=== PATIENT | female | born 1945 | race Two or more races ===

== ENCOUNTER 2016-04-28 13:46 | Inpatient (IN) | payer OTHER, MEDICARE ==
[~2016-04-28] VITALS: Ht 152.4 cm; Wt 59.0 kg
[~2016-04-28 13:46] MED LIST: ATORVASTATIN CA40 MG ORAL; BUSPAR10 MG ORAL; LOSARTAN POTASS50 MG ORAL; MAGNESIUM OXID400 M1 ORAL; MULTIVITAMINS1 EA14 PO; NOVOLOG100 UNIT/3 SUBQ; UNOBMED; VITAMIN C500 M1 ORAL
[2016-04-28 14:40] VITALS: BP 125/59
[2016-04-28 14:51] LABS: BASOPHILS % (AUTO) 0.3 % (0.0-2.0); LYMPHOCYTES % (AUTO) 11.4 % (20.0-45.0); MEAN CORPUSCULAR HEMOGLOBIN 28.6 PG (27.0-31.0); MEAN CORPUSCULAR HGB CONC 32.6 G/DL (32.0-36.0); MEAN CORPUSCULAR VOLUME 88 FL (80-99); MONOCYTES % (AUTO) 9.6 % (1.0-10.0); NEUTROPHILS % (AUTO) 77.6 % (45.0-75.0); PLATELET COUNT 143 K/UL (150-450); RED CELL DISTRIBUTION WIDTH 12.9 % (11.6-14.8); WHITE BLOOD COUNT 13.4 K/UL (4.8-10.8)
[2016-04-28 15:05] LABS: ALANINE AMINOTRANSFERASE 15 U/L (3-33); ALBUMIN/GLOBULIN RATIO 1.4 (1.0-2.7); ANION GAP 18 (5-15); ASPARTATE AMINO TRANSFERASE 20 U/L (5-40); CALCIUM 9.6 mg/dL (8.6-10.2); CARBON DIOXIDE 25 mEQ/L (20-30); CHLORIDE 97 mEQ/L (98-107); CREATININE 0.9 mg/dL (0.5-0.9); HEMOLYSIS 51; POTASSIUM 4.4 mEQ/L (3.4-4.9); SODIUM 140 mEQ/L (135-145); TOTAL PROTEIN 6.9 g/dL (6.6-8.7)
[2016-04-28 15:06] LABS: TROPONIN I < 0.30 ng/mL (<=0.30)
[2016-04-28 15:17] LABS: CKMB < 1.5 ng/mL (< 3.8)
[2016-04-28 15:18] LABS: REFLEX LACTIC ACID YES OR NO YES
[2016-04-28] MEDS ORDERED: IPRATROPIU0.2 MG/1 M HHN (15:28)
[2016-04-28] MEDS ORDERED: RISPERDAL0.5 MG ORAL (15:28)
[2016-04-28] MEDS ORDERED: MIRTAZAPINE15 M3 ORAL (15:28)
[2016-04-28] MEDS ORDERED: ALBUTEROL SULF8.5 GM INH (15:28)
[2016-04-28] MEDS ORDERED: NOVOLIN N100 UNIT/1 SUBQ ×2 (15:30)
[2016-04-28 15:39] VITALS: BP 129/67
[2016-04-28] MEDS ORDERED: RisperiDONE 0.25mg tab ORAL ONE (15:45)
--- NOTE | 2016-04-28 15:55 | Emergency Room Report ---
History of Present Illness General Chief Complaint: Upper Respiratory Illness Source: Medical Record Present Illness HPI 70-year-old female presents to ED for evaluation. Granddaughter is at bedside states the last several days patient has had a productive cough with increased secretions and fever. Notes productive cough. Denies chest pain or shortness of breath. Denies nausea or vomiting. No aggravating relieving factors. Denies any other associated symptoms Allergies: Coded Allergies: LISINOPRIL (Unverified Allergy, Unknown, 12/11/14) VANCOMYCIN (Verified Allergy, Unknown, 01/17/15) Patient History Past Medical History: none, DM, HTN, CVA/TIA Past Surgical History: other - tracheostomy Reviewed Nursing Documentation: PMH: Agreed, PSxH: Agreed Nursing Documentation-PMH Past Medical History: No History, Except For Hx Hypertension: Yes Hx Diabetes: Yes Hx Cerebrovascular Accident: Yes Review of Systems All Other Systems: negative except mentioned in HPI Physical Exam Vital Signs Date Time Temp Pulse Resp B/P Pulse Ox O2 Delivery O2 Flow Rate FiO2 04/28/16 14:00 99.0 99 18 125/59 94 Room Air Sp02 EP Interpretation: reviewed, normal General Appearance: no apparent distress, alert, GCS 15, non-toxic Head: normocephalic Eyes: bilateral eye PERRL, bilateral eye normal inspection ENT: hearing grossly normal, normal pharynx, no angioedema, normal voice Neck: tracheotomy Respiratory: chest non-tender, normal breath sounds, crackles, speaking full sentences Cardiovascular #1: regular rate, rhythm, no edema Gastrointestinal: normal bowel sounds, non tender, soft, non-distended, no guarding, no rebound Rectal: deferred Genitourinary: no CVA tenderness Musculoskeletal: normal inspection Neurologic: alert, oriented x3, responsive, motor strength/tone normal, sensory intact, speech normal Psychiatric: normal inspection Skin: normal inspection Lymphatic: normal inspection Medical Decision Making Diagnostic Impression: Primary Impression: Pneumonia Qualified Codes: J18.9 - Pneumonia, unspecified organism Additional Impressions: Sepsis Qualified Codes: A41.9 - Sepsis, unspecified organism UTI (urinary tract infection) Qualified Codes: N39.0 - Urinary tract infection, site not specified ER Course Hospital Course 70-year-old F presenting to ED with increased secretions, cough, fever Differential diagnoses include: Pneumonia, CHF exacerbation, pneumothorax, fluid overload Clinical course Patient placed on stretcher. On surveillance monitor. After initial history and physical, I ordered labs, IV fluids, EKG, chest x-ray, blood cultures, UA. Labs -leukocytosis noted, hemoglobin/hematocrit stable, electrolytes ok, lactate 2.3, troponins negative, UA grossly positive CXR - R lower lobe infiltrate given 30cc/kg fluid bolus. abx given. Case discussed with Dr. Roberts and he agreed to the patient to his service for further care and support I feel this is a highly complex case requiring extensive working including EKG/ Rhythm strip, Xray/CT/US, Blood/urine lab work, repeat exams while in ED, and administration of strong opiates/narcotics for pain control, admission to hospital or close patient follow up. Diagnosis - pneumonia, sepsis, UTI Patient admitted to floor in serious condition Labs Test 04/28/16 14:15 04/28/16 15:34 04/28/16 15:45 White Blood Count 13.4 K/UL (4.8-10.8) Red Blood Count 4.90 M/UL (4.20-5.40) Hemoglobin 14.0 G/DL (12.0-16.0) Hematocrit 43.0 % (37.0-47.0) Mean Corpuscular Volume 88 FL (80-99) Mean Corpuscular Hemoglobin 28.6 PG (27.0-31.0) Mean Corpuscular Hemoglobin Concent 32.6 G/DL (32.0-36.0) Red Cell Distribution Width 12.9 % (11.6-14.8) Platelet Count 143 K/UL (150-450) Mean Platelet Volume 11.0 FL (6.5-10.1) Neutrophils (%) (Auto) 77.6 % (45.0-75.0) Lymphocytes (%) (Auto) 11.4 % (20.0-45.0) Monocytes (%) (Auto) 9.6 % (1.0-10.0) Eosinophils (%) (Auto) 1.0 % (0.0-3.0) Basophils (%) (Auto) 0.3 % (0.0-2.0) Sodium Level 140 mEQ/L (135-145) Potassium Level 4.4 mEQ/L (3.4-4.9) Chloride Level 97 mEQ/L (98-107) Carbon Dioxide Level 25 mEQ/L (20-30) Anion Gap 18 (5-15) Blood Urea Nitrogen 21 mg/dL (7-23) Creatinine 0.9 mg/dL (0.5-0.9) Estimat Glomerular Filtration Rate mL/min (>60) Glucose Level 278 mg/dL (74-106) Lactic Acid Level 2.30 mmol/L (0.66-2.22) Calcium Level 9.6 mg/dL (8.6-10.2) Total Bilirubin 0.2 mg/dL (0.0-1.2) Aspartate Amino Transf (AST/SGOT) 20 U/L (5-40) Alanine Aminotransferase (ALT/SGPT) 15 U/L (3-33) Alkaline Phosphatase 87 U/L (35-104) Total Creatine Kinase 89 U/L (26-140) Creatine Kinase MB < 1.5 ng/mL (< 3.8) Creatine Kinase MB Relative Index 1.6 Troponin I < 0.30 ng/mL (<=0.30) Pro-B-Type Natriuretic Peptide 23 pg/mL (0-125) Total Protein 6.9 g/dL (6.6-8.7) Albumin 4.1 g/dL (3.5-5.2) Globulin 2.8 g/dL Albumin/Globulin Ratio 1.4 (1.0-2.7) EKG Diagnostic Results Rate: normal Rhythm: NSR ST Segments: no acute changes ASA given to the pt in ED: No Rhythm Strip Diag. Results EP Interpretation: yes Rhythm: NSR, no PVC's, no ectopy Chest X-Ray Diagnostic Results EP Interpretation: Yes Findings: no pneumothorax, no acute cardiopulmonary disease, other - atelectasis/consolidation in RLL Number of Views: 1 Last Vital Signs Date Time Temp Pulse Resp B/P Pulse Ox O2 Delivery O2 Flow Rate FiO2 04/28/16 14:40 99.0 98 18 125/59 94 Room Air Status: improved Disposition: ADMITTED INPATIENT Condition: Serious Referrals: [facility],REFERRING (PCP) MELISSA CALDWELL M.D. Apr 28, 2016 15:55
[2016-04-28 16:02] LABS: APPEARANCE,URINE CLOUDY; KETONES,URINE NEGATIVE (NEGATIVE); LEUKOCYTE ESTERASE ,URINE 3+ (NEGATIVE); NITRITE,URINE NEGATIVE (NEGATIVE); PH,URINE 6 (4.5-8.0); PROTEIN,URINE 3+ (NEGATIVE); UROBILINOGEN,URINE NORMAL MG/DL (0.0-1.0)
[2016-04-28 16:20] LABS: BACTERIA,URINE FEW /HPF; RBC,URINE TNTC /HPF (0 - 2); SQUAMOUS EPITHELIAL CELL,UR OCCASIONAL /LPF (NONE/OCC); WBC,URINE TNTC /HPF (0 - 2)
[2016-04-28] MEDS ORDERED: Hydrogen Peroxide 120ml Bottle TOPIC ONE (16:51)
[2016-04-28 16:56] VITALS: BP 118/52
[2016-04-28 18:06] VITALS: BP 119/70
[2016-04-28 19:00] VITALS: BP 159/58
[2016-04-28] MEDS ORDERED: Ipratropium 0.02% Inh Soln 2.5ml UD HHN PRN (21:00)
[2016-04-28] MEDS ORDERED: Albuterol ud Inhalation HHN PRN (21:00)
[2016-04-28] MEDS: Heparin 5000 units/ml inj SUBQ SCH (21:00)
[2016-04-28] MEDS ORDERED: Milk of Magnesia 30ml Ud ORAL PRN (21:00)
[2016-04-28] MEDS ORDERED: Zolpidem 5mg tab ORAL PRN (21:00)
[2016-04-28] MEDS ORDERED: Albuterol ud Inhalation HHN SCH (22:00)
[2016-04-28] MEDS: cefTRIAXone 1 GM in D5W 55 ML IVPB SCH (22:08)
[2016-04-28] MEDS: DuoNeb 0.5-3(2.5)mg/3ml neb HHN SCH (22:16)
[2016-04-28] MEDS: NovoLOG Insulin Flexpen SUBQ SCH (22:19)
[2016-04-28] MEDS: Insulin NPH SUBQ SCH (22:46)
[2016-04-28] MEDS: Azithromycin 500 MG in D5W 275 ML IV SCH (22:48)
[2016-04-29] VITALS: BP 140/78
[2016-04-29 04:00] VITALS: BP 118/57
[2016-04-29] MEDS: NovoLOG Insulin Flexpen SUBQ SCH ×4 (06:29→21:10)
[2016-04-29 07:20] LABS: BASOPHILS % (AUTO) 0.4 % (0.0-2.0); EOSINOPHILS % (AUTO) 1.9 % (0.0-3.0); LYMPHOCYTES % (AUTO) 25.9 % (20.0-45.0); MEAN CORPUSCULAR HEMOGLOBIN 28.9 PG (27.0-31.0); MEAN CORPUSCULAR HGB CONC 33.3 G/DL (32.0-36.0); MEAN CORPUSCULAR VOLUME 87 FL (80-99); MEAN PLATELET VOLUME 10.3 FL (6.5-10.1); MONOCYTES % (AUTO) 11.1 % (1.0-10.0); NEUTROPHILS % (AUTO) 60.8 % (45.0-75.0); PLATELET COUNT 133 K/UL (150-450); RED BLOOD COUNT 4.39 M/UL (4.20-5.40); WHITE BLOOD COUNT 9.6 K/UL (4.8-10.8)
[2016-04-29 07:21] LABS: ANION GAP 14 (5-15); CALCIUM 9.1 mg/dL (8.6-10.2); CARBON DIOXIDE 25 mEQ/L (20-30); CHLORIDE 104 mEQ/L (98-107); CREATININE 0.7 mg/dL (0.5-0.9); HEMOLYSIS 0; POTASSIUM 4.1 mEQ/L (3.4-4.9); SODIUM 143 mEQ/L (135-145)
[2016-04-29 08:07] VITALS: BP 101/53
--- NOTE | 2016-04-29 08:29 | Diagnostic Imaging Report ---
Indication: Dyspnea Comparison: 12/03/14 A single view chest radiograph was obtained. Findings: No definite infiltrate or pulmonary vascular congestion identified. Ventriculoperitoneal shunt and tracheostomy noted. There is no pneumothorax. The heart is enlarged. The aorta is mildly enlarged consistent with atherosclerotic vascular disease. The bones are osteopenic. Impression: Interval tracheostomy placement. No change otherwise.
[2016-04-29] MEDS: Heparin 5000 units/ml inj SUBQ SCH ×2 (09:00→20:23)
[2016-04-29] MEDS: Losartan 50mg tab ORAL SCH (09:00)
[2016-04-29] MEDS ORDERED: Albuterol 90mcg Inhaler 8gm INH SCH (10:00)
[2016-04-29] MEDS: Magnesium Oxide 400mg tab ORAL SCH ×2 (10:33→21:06)
[2016-04-29] MEDS: Ascorbic Acid 500mg tab ORAL SCH (10:34)
[2016-04-29] MEDS: DuoNeb 0.5-3(2.5)mg/3ml neb HHN SCH ×2 (10:47→22:23)
[2016-04-29] MEDS: Insulin NPH SUBQ SCH ×2 (11:06→21:58)
[2016-04-29 11:53] VITALS: BP 121/58
[2016-04-29 16:41] VITALS: BP 121/59
[2016-04-29 20:00] VITALS: BP 104/53
[2016-04-29] MEDS: cefTRIAXone 1 GM in D5W 55 ML IVPB SCH (21:58)
--- NOTE | 2016-04-29 21:58 | History and Physical Report ---
DATE OF ADMISSION: 04/28/2016 REASON FOR ADMISSION: Possible upper respiratory tract infection, possible pneumonia, now with evidence of bacteremia. HISTORY OF PRESENT ILLNESS: The patient is a 70-year-old female presented to the emergency room. The patient's granddaughter apparently noted that she has had productive cough with increased secretions and fever. The patient denies any chest pain or shortness of breath. Denies nausea or vomiting. Denies any associated symptoms. The patient was seen and evaluated in the emergency room. She did have chest x-ray consistent with pneumonia and the patient was given IV antibiotics and admitted to the floor for ongoing care. The blood cultures are growing gram-positive cocci in clusters. The patient however appears to be clinically comfortable at present. PAST MEDICAL HISTORY: Diabetes, hypertension, history of CVA, and prior history tracheostomy. The patient also with history of diabetes and history of stroke. MEDICATIONS: Reviewed. ALLERGIES: Reviewed. REVIEW OF SYSTEMS: Otherwise negative. Negative with the exception of the above. PHYSICAL EXAMINATION: GENERAL: The patient is a well-developed female, comfortable at present. VITAL SIGNS: Blood pressure is 101/53 and pulse 66. The patient has a G-tube. Respiratory rate 15 and saturations are 99%. HEENT: Fairly negative. NECK: Supple. Extraocular grossly intact. Tracheostomy, which is midline. Carotids are 2+. LUNGS: Coarse breath sounds. Moderate air entry. CARDIAC: S1 and S2. Regular rate and rhythm without murmurs, rubs, or gallops. ABDOMEN: Overall soft, nontender, and nondistended. EXTREMITIES: No cyanosis or clubbing. No significant edema. NEUROLOGIC: The patient appears to be fairly alert and oriented. Grossly weak. LABORATORY AND DIAGNOSTIC DATA: Electrolytes fairly normal at present. Previously with a blood sugar of 278, now 150 . Lactic acid level 3.30. White count initially 13.4, now improved to 9.6 and platelets of 143,000, but this morning 133,000. Urinalysis with too numerous to count white cells. IMPRESSION: 1. Urinary tract infection possible urosepsis. 2. Evidence of tracheostomy. 3. evidence of pneumonia. 4. Evidence of positive blood culture. 5. Possible sepsis with associated leukocytosis. 6. Hyperglycemia. 7. Evidence of hematuria . RECOMMENDATIONS: Admission noted. The patient will be placed on vancomycin as well as Tygacil. I will call Infectious Disease to assist. IV hydration. DVT prophylaxis. Monitor urinary output. Follow up final blood cultures. Respiratory care as needed and tracheostomy care. Continue with other home medications and monitor clinically with changes. Interventions discuss with family. Nebulized therapy as needed. Oxygen therapy. Suction and continue to follow closely for further changes and ongoing interventions. Lenin Roberts M.D. DR: Kendall JOB#: [id number] CC: GISELLE
--- NOTE | 2016-04-29 22:17 | Consultation ---
DATE OF CONSULTATION: 04/29/2016 INFECTIOUS DISEASES CONSULTATION CONSULTING PHYSICIAN: Tara Duenas M.D. REFERRING PHYSICIAN: Lenin Roberts M.D. REASON FOR CONSULTATION: Possible pneumonia. HISTORY OF PRESENTING ILLNESS: This is a 70-year-old lady with history of diabetes, hypertension, CVA, and respiratory failure, status post tracheostomy on a T-tube, who came in with fever, cough, and increased secretions. She was seen in [place] [facility] where she was found to have a pneumonia and urinary tract infection and an Infectious Diseases consultation has been obtained for antibiotics. PAST MEDICAL HISTORY: 1. History of diabetes. 2. Hypertension. 3. CVA. 4. Respiratory failure, status post tracheostomy on a T-tube. MEDICATIONS: As an inpatient, the patient is on Lipitor, albuterol, ascorbic acid, losartan, magnesium oxide, multivitamin, insulin, Protonix, Remeron, insulin, azithromycin, ceftriaxone, albuterol, Mylanta, Risperdal, subcutaneous heparin, Tylenol, Ambien, and milk of magnesia. ALLERGIES: 1. Vancomycin. 2. Lisinopril. SOCIAL HISTORY: She does not smoke, drink, or use drugs. FAMILY HISTORY: Noncontributory. REVIEW OF SYSTEMS: Unable to obtain currently. PHYSICAL EXAMINATION: VITAL SIGNS: Temperature of 98.6 degrees, T-max of 99 degrees, pulse of 88, respiratory rate of 16, blood pressure 101/53, and O2 saturation of 98%. HEENT: Pupils are equally reactive to light and accommodation. Mouth appears clean without thrush. NECK: Tracheostomy site appears clean. CARDIOVASCULAR: Regular rate and rhythm. No murmurs. LUNGS: Clear to auscultation bilaterally. No crackles. No wheezes. ABDOMEN: Soft and nontender. No organomegaly. EXTREMITIES: No cyanosis, no clubbing, and no edema. LABORATORY DATA: White count of 13.4 yesterday and white count of 9.6 today. Hemoglobin 12.7, hematocrit 38, MCV 87, and platelet count of 133,000, with neutrophils of 60%. Sodium 143, potassium 4.1, chloride 104, bicarb 25, BUN 12, creatinine 0.7, glucose 150, and calcium 9.1. On 04/28/2016, total bilirubin 0.2. AST 20, ALT 15, and alkaline phosphatase 87. CK of 89 and CK-MB less than 1.5. Troponin less than 0.3. Total protein 6.9. Albumin 4.1. UA showing efl-hfebbuzi-ir-count white cells and lupus erythematosus 3+. Nitrites negative. Blood culture is growing gram-positive cocci in clusters. Nasal swab was negative for influenza A and B. Chest x-ray is showing no definite infiltrate or congestion. ASSESSMENT: 1. This is a 70-year-old lady with history of diabetes, hypertension, and cerebrovascular accident, who comes in with urinary tract infection. 2. She also has positive blood cultures with gram-positive cocci. 3. We would also be concerned regarding a pneumonia. PLAN: 1. Continue ceftriaxone and azithromycin. 2. We will start the patient on linezolid given her vancomycin allergy. 3. We will order sputum for Gram stain and culture. 4. We will order urine cultures. 5. We will order for serum Legionella antibody and mycoplasma serology. 6. We will follow up cultures and adjust antibiotics accordingly. I would like to thank, Dr. Roberts, for this consultation. Tara Duenas M.D. DR: ANTOINE JOB#: [id number] CC: Lenin Roberts M.D.
[2016-04-29] MEDS ORDERED: ALBUTEROL2.5 MG/3 M INH (22:25)
[2016-04-29] MEDS: Azithromycin 500 MG in D5W 275 ML IV SCH (22:45)
[2016-04-30] VITALS: BP 128/54
[2016-04-30 04:00] VITALS: BP 106/53
[2016-04-30] MEDS: NovoLOG Insulin Flexpen SUBQ SCH ×4 (06:24→20:50)
[2016-04-30] MEDS: DuoNeb 0.5-3(2.5)mg/3ml neb HHN SCH ×2 (07:15→21:08)
[2016-04-30 08:00] VITALS: BP 104/60
--- NOTE | 2016-04-30 08:52 | General Progress Note ---
Assessment/Plan Assessment/Plan IMPRESSION: 1. Urinary tract infection possible urosepsis. 2. Evidence of tracheostomy. 3. Evidence of pneumonia. 4. Evidence of positive blood culture. ?contaminant 5. Possible sepsis with associated leukocytosis. 6. Hyperglycemia. 7. Evidence of hematuria PLAN ID noted. urology contacted for hematuria IV antibiotics care noted and will monitor continue same trach care suction follow up for change and recommend further impression, plan, and exam edited and reviewed in detail care discussed with RN Subjective Allergies: Coded Allergies: LISINOPRIL (Unverified Allergy, Unknown, 12/11/14) VANCOMYCIN (Verified Allergy, Unknown, 01/17/15) Subjective care noted ID appreciated events reviewed overnight Objective Last 24 Hour Vital Signs Date Time Temp Pulse Resp B/P Pulse Ox O2 Delivery O2 Flow Rate FiO2 04/30/16 08:00 97.7 74 15 104/60 95 04/30/16 07:20 73 16 98 T-piece 5.0 04/30/16 07:18 T-piece 5.0 04/30/16 07:11 69 16 96 T-piece 5.0 04/30/16 07:11 28 04/30/16 07:09 96 T-piece 5.0 04/30/16 04:00 96.8 63 20 106/53 96 Trach Collar 5.0 04/30/16 00:00 96.3 81 22 128/54 96 Trach Collar 5.0 04/29/16 22:34 82 16 98 T-piece 5.0 04/29/16 22:21 28 04/29/16 22:21 75 16 95 T-piece 5.0 04/29/16 20:05 97 T-piece 5.0 04/29/16 20:05 97 16 T-piece 5.0 04/29/16 20:05 T-piece 5.0 28 04/29/16 20:00 97.3 77 17 104/53 93 Room Air 04/29/16 16:41 98.2 81 15 121/59 99 Room Air 04/29/16 11:53 97.8 75 16 121/58 97 Room Air 04/29/16 10:58 88 16 98 T-piece 5.0 28 04/29/16 10:58 28 04/29/16 10:47 95 T-piece 5.0 28 04/29/16 10:47 82 16 T-piece 5.0 28 04/29/16 10:47 T-piece 5.0 28 04/29/16 10:47 82 16 95 T-piece 5.0 04/29/16 10:47 04/29/16 09:00 101/53 Intake and Output 04/29/16 04/30/16 19:00 07:00 Intake Total 850 ml 630 ml Balance 850 ml 630 ml Intake Oral 550 ml IV Total 300 ml 630 ml # Voids 1 5 Labs Test 04/28/16 14:15 04/28/16 15:34 04/28/16 15:45 04/29/16 06:10 White Blood Count 13.4 K/UL (4.8-10.8) 9.6 K/UL (4.8-10.8) Red Blood Count 4.90 M/UL (4.20-5.40) 4.39 M/UL (4.20-5.40) Hemoglobin 14.0 G/DL (12.0-16.0) 12.7 G/DL (12.0-16.0) Hematocrit 43.0 % (37.0-47.0) 38.0 % (37.0-47.0) Mean Corpuscular Volume 88 FL (80-99) 87 FL (80-99) Mean Corpuscular Hemoglobin 28.6 PG (27.0-31.0) 28.9 PG (27.0-31.0) Mean Corpuscular Hemoglobin Concent 32.6 G/DL (32.0-36.0) 33.3 G/DL (32.0-36.0) Red Cell Distribution Width 12.9 % (11.6-14.8) 13.0 % (11.6-14.8) Platelet Count 143 K/UL (150-450) 133 K/UL (150-450) Mean Platelet Volume 11.0 FL (6.5-10.1) 10.3 FL (6.5-10.1) Neutrophils (%) (Auto) 77.6 % (45.0-75.0) 60.8 % (45.0-75.0) Lymphocytes (%) (Auto) 11.4 % (20.0-45.0) 25.9 % (20.0-45.0) Monocytes (%) (Auto) 9.6 % (1.0-10.0) 11.1 % (1.0-10.0) Eosinophils (%) (Auto) 1.0 % (0.0-3.0) 1.9 % (0.0-3.0) Basophils (%) (Auto) 0.3 % (0.0-2.0) 0.4 % (0.0-2.0) Sodium Level 140 mEQ/L (135-145) 143 mEQ/L (135-145) Potassium Level 4.4 mEQ/L (3.4-4.9) 4.1 mEQ/L (3.4-4.9) Chloride Level 97 mEQ/L (98-107) 104 mEQ/L (98-107) Carbon Dioxide Level 25 mEQ/L (20-30) 25 mEQ/L (20-30) Anion Gap 18 (5-15) 14 (5-15) Blood Urea Nitrogen 21 mg/dL (7-23) 12 mg/dL (7-23) Creatinine 0.9 mg/dL (0.5-0.9) 0.7 mg/dL (0.5-0.9) Estimat Glomerular Filtration Rate mL/min (>60) mL/min (>60) Glucose Level 278 mg/dL (74-106) 150 mg/dL (74-106) Lactic Acid Level 2.30 mmol/L (0.66-2.22) 2.70 mmol/L (0.66-2.22) Calcium Level 9.6 mg/dL (8.6-10.2) 9.1 mg/dL (8.6-10.2) Total Bilirubin 0.2 mg/dL (0.0-1.2) Aspartate Amino Transf (AST/SGOT) 20 U/L (5-40) Alanine Aminotransferase (ALT/SGPT) 15 U/L (3-33) Alkaline Phosphatase 87 U/L (35-104) Total Creatine Kinase 89 U/L (26-140) Creatine Kinase MB < 1.5 ng/mL (< 3.8) Creatine Kinase MB Relative Index 1.6 Troponin I < 0.30 ng/mL (<=0.30) Pro-B-Type Natriuretic Peptide 23 pg/mL (0-125) Total Protein 6.9 g/dL (6.6-8.7) Albumin 4.1 g/dL (3.5-5.2) Globulin 2.8 g/dL Albumin/Globulin Ratio 1.4 (1.0-2.7) Urine Color Pale yellow Urine Appearance Cloudy Urine pH 6 (4.5-8.0) Urine Specific [place] 1.015 (1.005-1.035) Urine Protein 3+ (NEGATIVE) Urine Glucose (UA) 2+ (NEGATIVE) Urine Ketones Negative (NEGATIVE) Urine Occult Blood 5+ (NEGATIVE) Urine Nitrite Negative (NEGATIVE) Urine Bilirubin Negative (NEGATIVE) Urine Urobilinogen Normal MG/DL (0.0-1.0) Urine Leukocyte Esterase 3+ (NEGATIVE) Urine RBC Tntc /HPF (0 - 2) Urine WBC Tntc /HPF (0 - 2) Urine Squamous Epithelial Cells Occasional /LPF Urine Bacteria Few /HPF (NONE) Height (Feet): 5 Height (Inches): 0.00 Weight (Pounds): 130 Objective PHYSICAL EXAMINATION: GENERAL: The patient is a well-developed female, comfortable at present. HEENT: Fairly negative. NECK: Supple. Extraocular grossly intact. Tracheostomy, which is midline. Carotids are 2+. LUNGS: Coarse breath sounds. Moderate air entry. CARDIAC: S1 and S2. Regular rate and rhythm without murmurs, rubs, or gallops. ABDOMEN: Overall soft, nontender, and nondistended. EXTREMITIES: No cyanosis or clubbing. No significant edema. NEUROLOGIC: The patient appears to be nonfocal but weak TAMIE WANG Apr 30, 2016 08:52
[2016-04-30] MEDS: Losartan 50mg tab ORAL SCH (09:00)
[2016-04-30] MEDS: Heparin 5000 units/ml inj SUBQ SCH ×2 (09:00→20:16)
[2016-04-30] MEDS: Magnesium Oxide 400mg tab ORAL SCH ×2 (09:35→20:48)
[2016-04-30] MEDS: Ascorbic Acid 500mg tab ORAL SCH (09:35)
[2016-04-30] MEDS: Insulin NPH SUBQ SCH ×3 (09:36→23:36)
--- NOTE | 2016-04-30 10:07 | Infectious Diseases Prog Note ---
Assessment/Plan Assessment/Plan A: Pyuria, UTI Pneumonia DM HPN s/p CVA Tracheostomy status Positive blood culture, contamination Acodosis P: continue Rocephin & Zithromax Discontinue Linezolid Subjective ROS Limited/Unobtainable: Yes Allergies: Coded Allergies: LISINOPRIL (Unverified Allergy, Unknown, 12/11/14) VANCOMYCIN (Verified Allergy, Unknown, 01/17/15) Objective Vital Signs Last 24 Hour Vital Signs Date Time Temp Pulse Resp B/P Pulse Ox O2 Delivery O2 Flow Rate FiO2 04/30/16 08:00 97.7 74 15 104/60 95 04/30/16 07:20 73 16 98 T-piece 5.0 28 04/30/16 07:18 T-piece 5.0 28 04/30/16 07:11 69 16 96 T-piece 5.0 28 04/30/16 07:11 28 04/30/16 07:09 96 T-piece 5.0 28 04/30/16 04:00 96.8 63 20 106/53 96 Trach Collar 5.0 04/30/16 00:00 96.3 81 22 128/54 96 Trach Collar 5.0 04/29/16 22:34 82 16 98 T-piece 5.0 04/29/16 22:21 28 04/29/16 22:21 75 16 95 T-piece 5.0 04/29/16 20:05 97 T-piece 5.0 04/29/16 20:05 97 16 T-piece 5.0 04/29/16 20:05 T-piece 5.0 04/29/16 20:00 97.3 77 17 104/53 93 Room Air 04/29/16 16:41 98.2 81 15 121/59 99 Room Air 04/29/16 11:53 97.8 75 16 121/58 97 Room Air 04/29/16 10:58 88 16 98 T-piece 5.0 04/29/16 10:58 28 04/29/16 10:47 95 T-piece 5.0 04/29/16 10:47 82 16 T-piece 5.0 28 04/29/16 10:47 T-piece 5.0 28 04/29/16 10:47 82 16 95 T-piece 5.0 28 04/29/16 10:47 28 Height (Feet): 5 Height (Inches): 0.00 Weight (Pounds): 130 General Appearance: no acute distress HEENT: status post trach Respiratory/Chest: lungs clear Cardiovascular: normal rate Abdomen: soft, non tender Extremities: no edema Neurologic/Psychiatric: other - sleeping, left hemiplegia Microbiology Date/Time Source Procedure Growth Status 04/28/16 14:27 Blood Blood Culture - Preliminary Staphylococcus Sp Coag Neg Resulted 04/28/16 14:12 Blood Blood Culture - Preliminary NO GROWTH AFTER 24 HOURS Resulted 04/28/16 14:15 Nasal Nares Influenza Types A,B Antigen (RANDALL) - Final Complete 04/28/16 15:34 Urine,Clean Catch Urine Culture - Preliminary NO GROWTH AFTER 24 HOURS Resulted Current Medications Medications (Trade) Dose Ordered Sig/Kerry Route PRN Reason Start Time Stop Time Status Last Admin Dose Admin Acetaminophen (Tylenol) 650 mg Q4H PRN ORAL Mild Pain/Temp > 100.5 04/28/16 21:00 05/28/16 20:59 Al Hydroxide/Mg Hydroxide (Mylanta) 30 ml Q6H PRN ORAL Abdominal cramps 04/28/16 21:30 05/28/16 21:29 Albuterol Sulfate (Proventil) 2.5 mg Q4H PRN HHN Shortness of Breath 04/28/16 21:00 05/03/16 20:59 Albuterol/ Ipratropium (DuoNeb 0.5-3(2.5)mg/3ml) 3 ml Q12HRT HHN 04/28/16 22:00 05/03/16 21:59 04/30/16 07:15 Ascorbic Acid (Vitamin C) 500 mg DAILY ORAL 04/29/16 09:00 05/29/16 08:59 04/30/16 09:35 Atorvastatin Calcium (Lipitor) 40 mg BEDTIME ORAL 04/29/16 21:00 05/29/16 20:59 04/29/16 21:06 Azithromycin/ Dextrose (Zithromax/D5W 250ml) 275 ml @ 275 mls/hr Q24H IV 04/28/16 23:00 05/04/16 23:59 04/29/16 22:45 Ceftriaxone Sodium 1 gm/ Dextrose 55 ml @ 110 mls/hr Q24H IVPB 04/28/16 22:00 05/05/16 21:59 04/29/16 21:58 Dextrose (Dextrose 50%) STAT PRN IV Hypoglycemia 04/28/16 21:00 05/28/16 20:59 Heparin Sodium (Porcine) (Heparin 5000 units/ml) 5,000 units EVERY 12 HOURS SUBQ 04/28/16 21:00 05/28/16 20:59 Insulin Aspart (NovoLOG) BEFORE MEALS AND HS SUBQ 04/28/16 22:00 05/28/16 21:59 04/30/16 06:24 Insulin Human NPH (NovoLIN N) 14 units BEDTIME SUBQ 04/28/16 23:00 05/28/16 22:59 04/29/16 21:58 Insulin Human NPH (NovoLIN N) 20 units DAILY SUBQ 04/29/16 09:00 05/29/16 08:59 04/30/16 09:36 Linezolid (Zyvox) 300 ml @ 300 mls/hr Q12HR IVPB 04/29/16 13:00 05/06/16 12:59 04/30/16 09:36 Losartan Potassium (Cozaar) 50 mg DAILY ORAL 04/29/16 09:00 05/29/16 08:59 Magnesium Hydroxide 30 ml 30 ml HSPRN PRN ORAL Constipation 04/28/16 21:00 05/28/16 20:59 Magnesium Oxide (Mag-Ox 400mg) 400 mg Q12HR ORAL 04/29/16 09:00 05/29/16 08:59 04/30/16 09:35 Mirtazapine 15 mg 15 mg DAILY ORAL 04/29/16 09:00 05/29/16 08:59 04/30/16 09:35 Multivitamins (Multivitamins) 1 tab DAILY ORAL 04/29/16 09:00 05/29/16 08:59 04/30/16 09:35 Pantoprazole (Protonix) 40 mg DAILY ORAL 04/29/16 09:00 05/29/16 08:59 04/30/16 09:34 Risperidone (RisperDAL) 0.5 mg DAILY PRN ORAL Agitation 04/28/16 21:00 05/28/16 20:59 Zolpidem Tartrate (Ambien) 5 mg HSPRN PRN ORAL Insomnia 04/28/16 21:00 05/28/16 20:59 ANTONIO GRACIA Apr 30, 2016 10:07
[2016-04-30 11:56] VITALS: BP 114/63
[2016-04-30 16:44] VITALS: BP 140/69
--- NOTE | 2016-04-30 19:46 | Cardiology Report ---
APPROVED REPORT EKG Measurement Heart [id number] Normal sinus rhythm Normal ECG
[2016-04-30 20:00] VITALS: BP 138/68
[2016-04-30] MEDS: cefTRIAXone 1 GM in D5W 55 ML IVPB SCH (21:26)
[2016-04-30] MEDS: Azithromycin 500 MG in D5W 275 ML IV SCH (22:43)
[2016-05-01] VITALS: BP 118/49
--- NOTE | 2016-05-01 01:27 | Consultation ---
DATE OF CONSULTATION: 04/30/2016 CONSULTING PHYSICIAN: Solis Doss M.D. REFERRING PHYSICIAN: Lenin Roberts M.D. REASON FOR CONSULTATION: For evaluation of hematuria. HISTORY OF PRESENT ILLNESS: This is a 70-year-old female, she was admitted to the hospital because of possible upper respiratory tract infection and pneumonia. She has a history of urinary incontinence. She has a history of chronic trach. She was noted to have likely hematuria. Urology evaluation requested. I am not sure, she has had any flank pain. Most of the history was obtained from the chart and her family. PAST MEDICAL HISTORY: Significant for diabetes, hypertension, and history of CVA. PAST SURGICAL HISTORY: She had a tracheostomy. She has removal of polyps from her uterus and also tubal ligation. CURRENT MEDICATIONS: In the hospital, the patient is on, 1. Lipitor. 2. Vitamin C. 3. Cozaar. 4. Mag-Ox. 5. Multivitamin. 6. Novolin. 7. Protonix. 8. Remeron. 9. Ceftriaxone. 10. Mylanta. 11. Risperdal. 12. Proventil. 13. Subcutaneous heparin. 14. Ambien. ALLERGIES: 1. Lisinopril. 2. Vancomycin. SOCIAL HISTORY: She is a nonsmoker. REVIEW OF SYSTEMS: Unable to obtain. FAMILY HISTORY: Unable to obtain. PHYSICAL EXAMINATION: GENERAL: This is an elderly female. She is nonverbal. VITAL SIGNS: Temperature is 97.7, blood pressure is 104/60, pulse 74, and respirations 16. HEENT: Normocephalic. NECK: Supple. Trach is in place. ABDOMEN: Soft. EXTREMITIES: Slightly contracted. LABORATORY DATA: Her UA showed 3+ protein, too numerous to count RBCs, too numerous to count WBCs. White count 9.6, hemoglobin 12.7, and platelets of 133,000. BUN is 12, creatinine 0.7, and potassium 4.1. Her urine culture is negative at 24 hours. DIAGNOSTIC IMAGING STUDIES: The patient had a chest x-ray, which was reviewed. There is no other imaging studies of her kidneys. IMPRESSION: 1. Hematuria. 2. Urinary incontinence. 3. Probable neurogenic bladder. 4. Pyuria. 5. Proteinuria. PLAN AND DISCUSSION: The patient does have likely hematuria. This may be secondary to urinary tract infection or irritation of her bladder. I did talk to the patient's family. At this time, I would recommend to monitor clinically. We will follow up on the results of urine culture. She is to continue with antibiotics as ordered. I will also order renal ultrasound and go from there. At some point, she may need cystoscopy to complete the workup. Thank you, Dr. Roberts, for asking me to see this patient in consultation. Solis Doss M.D. DR: MONSERRAT JOB#: [id number] CC:
[2016-05-01 04:00] VITALS: BP 104/51
[2016-05-01] MEDS: NovoLOG Insulin Flexpen SUBQ SCH ×4 (06:31→21:04)
[2016-05-01 08:29] VITALS: BP 111/48
[2016-05-01] MEDS: Losartan 50mg tab ORAL SCH (09:00)
[2016-05-01] MEDS: Heparin 5000 units/ml inj SUBQ SCH ×2 (09:00→20:48)
--- NOTE | 2016-05-01 09:00 | General Progress Note ---
Assessment/Plan Assessment/Plan IMPRESSION: 1. Urinary tract infection possible urosepsis. 2. Evidence of tracheostomy. 3. Evidence of pneumonia. 4. Evidence of positive blood culture. ?contaminant 5. Possible sepsis with associated leukocytosis. 6. Hyperglycemia. 7. Evidence of hematuria PLAN ID noted. cultures noted urology noted IV antibiotics reviewed care noted and will monitor continue same trach care suction follow up for change and recommend further stabilize and DC home impression, plan, and exam edited and reviewed in detail care discussed with RN Subjective Allergies: Coded Allergies: LISINOPRIL (Unverified Allergy, Unknown, 12/11/14) VANCOMYCIN (Verified Allergy, Unknown, 01/17/15) Subjective stable confused congested at bedside Objective Last 24 Hour Vital Signs Date Time Temp Pulse Resp B/P Pulse Ox O2 Delivery O2 Flow Rate FiO2 05/01/16 08:29 98.6 65 20 111/48 100 Trach Collar 05/01/16 04:00 97.0 71 20 104/51 96 Trach Collar 05/01/16 01:20 96 T-piece 6.0 28 05/01/16 01:20 T-piece 6.0 28 05/01/16 00:00 97.3 72 20 118/49 95 Trach Collar 04/30/16 21:10 92 20 99 T-piece 6.0 28 04/30/16 21:00 90 20 97 T-piece 6.0 28 04/30/16 20:00 96.8 74 18 138/68 97 Trach Collar 6.0 04/30/16 19:30 28 04/30/16 19:30 97 T-piece 6.0 28 04/30/16 19:30 T-piece 6.0 28 04/30/16 16:44 98.1 77 16 140/69 95 Room Air 04/30/16 11:56 98.0 67 16 114/63 100 04/30/16 09:00 104/60 Intake and Output 04/30/16 05/01/16 19:00 07:00 Intake Total 550 ml 330 ml Balance 550 ml 330 ml Intake Oral 250 ml IV Total 300 ml 330 ml # Voids 3 3 Labs Test 04/28/16 14:15 04/28/16 15:34 04/28/16 15:45 04/29/16 06:10 White Blood Count 13.4 K/UL (4.8-10.8) 9.6 K/UL (4.8-10.8) Red Blood Count 4.90 M/UL (4.20-5.40) 4.39 M/UL (4.20-5.40) Hemoglobin 14.0 G/DL (12.0-16.0) 12.7 G/DL (12.0-16.0) Hematocrit 43.0 % (37.0-47.0) 38.0 % (37.0-47.0) Mean Corpuscular Volume 88 FL (80-99) 87 FL (80-99) Mean Corpuscular Hemoglobin 28.6 PG (27.0-31.0) 28.9 PG (27.0-31.0) Mean Corpuscular Hemoglobin Concent 32.6 G/DL (32.0-36.0) 33.3 G/DL (32.0-36.0) Red Cell Distribution Width 12.9 % (11.6-14.8) 13.0 % (11.6-14.8) Platelet Count 143 K/UL (150-450) 133 K/UL (150-450) Mean Platelet Volume 11.0 FL (6.5-10.1) 10.3 FL (6.5-10.1) Neutrophils (%) (Auto) 77.6 % (45.0-75.0) 60.8 % (45.0-75.0) Lymphocytes (%) (Auto) 11.4 % (20.0-45.0) 25.9 % (20.0-45.0) Monocytes (%) (Auto) 9.6 % (1.0-10.0) 11.1 % (1.0-10.0) Eosinophils (%) (Auto) 1.0 % (0.0-3.0) 1.9 % (0.0-3.0) Basophils (%) (Auto) 0.3 % (0.0-2.0) 0.4 % (0.0-2.0) Sodium Level 140 mEQ/L (135-145) 143 mEQ/L (135-145) Potassium Level 4.4 mEQ/L (3.4-4.9) 4.1 mEQ/L (3.4-4.9) Chloride Level 97 mEQ/L (98-107) 104 mEQ/L (98-107) Carbon Dioxide Level 25 mEQ/L (20-30) 25 mEQ/L (20-30) Anion Gap 18 (5-15) 14 (5-15) Blood Urea Nitrogen 21 mg/dL (7-23) 12 mg/dL (7-23) Creatinine 0.9 mg/dL (0.5-0.9) 0.7 mg/dL (0.5-0.9) Estimat Glomerular Filtration Rate mL/min (>60) mL/min (>60) Glucose Level 278 mg/dL (74-106) 150 mg/dL (74-106) Lactic Acid Level 2.30 mmol/L (0.66-2.22) 2.70 mmol/L (0.66-2.22) Calcium Level 9.6 mg/dL (8.6-10.2) 9.1 mg/dL (8.6-10.2) Total Bilirubin 0.2 mg/dL (0.0-1.2) Aspartate Amino Transf (AST/SGOT) 20 U/L (5-40) Alanine Aminotransferase (ALT/SGPT) 15 U/L (3-33) Alkaline Phosphatase 87 U/L (35-104) Total Creatine Kinase 89 U/L (26-140) Creatine Kinase MB < 1.5 ng/mL (< 3.8) Creatine Kinase MB Relative Index 1.6 Troponin I < 0.30 ng/mL (<=0.30) Pro-B-Type Natriuretic Peptide 23 pg/mL (0-125) Total Protein 6.9 g/dL (6.6-8.7) Albumin 4.1 g/dL (3.5-5.2) Globulin 2.8 g/dL Albumin/Globulin Ratio 1.4 (1.0-2.7) Urine Color Pale yellow Urine Appearance Cloudy Urine pH 6 (4.5-8.0) Urine Specific [place] 1.015 (1.005-1.035) Urine Protein 3+ (NEGATIVE) Urine Glucose (UA) 2+ (NEGATIVE) Urine Ketones Negative (NEGATIVE) Urine Occult Blood 5+ (NEGATIVE) Urine Nitrite Negative (NEGATIVE) Urine Bilirubin Negative (NEGATIVE) Urine Urobilinogen Normal MG/DL (0.0-1.0) Urine Leukocyte Esterase 3+ (NEGATIVE) Urine RBC Tntc /HPF (0 - 2) Urine WBC Tntc /HPF (0 - 2) Urine Squamous Epithelial Cells Occasional /LPF Urine Bacteria Few /HPF (NONE) Height (Feet): 5 Height (Inches): 0.00 Weight (Pounds): 130 Objective PHYSICAL EXAMINATION: GENERAL: The patient is a well-developed female, comfortable at present. HEENT: Fairly negative. NECK: Supple. Extraocular grossly intact. Tracheostomy, which is midline. Carotids are 2+. LUNGS: Coarse breath sounds. Moderate air entry. no wheeze CARDIAC: S1 and S2. Regular rate and rhythm without murmurs, rubs, or gallops. ABDOMEN: Overall soft, nontender, and nondistended. no HSM EXTREMITIES: No cyanosis or clubbing. No significant edema. NEUROLOGIC: The patient appears to be nonfocal but weak TAMIE WANG May 01, 2016 09:00
--- NOTE | 2016-05-01 09:03 | Urology Progress Note ---
Assessment/Plan Assessment/Plan 1. Hematuria. 2. Urinary incontinence. 3. Probable neurogenic bladder. 4. Pyuria. 5. Proteinuria. abx as ordered f/u on urine cx and renal u/s cysto later d/w pt's granddaughter Subjective Allergies: Coded Allergies: LISINOPRIL (Unverified Allergy, Unknown, 12/11/14) VANCOMYCIN (Verified Allergy, Unknown, 01/17/15) Subjective no new changes Objective Last 24 Hour Vital Signs Date Time Temp Pulse Resp B/P Pulse Ox O2 Delivery O2 Flow Rate FiO2 05/01/16 08:29 98.6 65 20 111/48 100 Trach Collar 05/01/16 04:00 97.0 71 20 104/51 96 Trach Collar 05/01/16 01:20 96 T-piece 6.0 28 05/01/16 01:20 T-piece 6.0 28 05/01/16 00:00 97.3 72 20 118/49 95 Trach Collar 04/30/16 21:10 92 20 99 T-piece 6.0 28 04/30/16 21:00 90 20 97 T-piece 6.0 28 04/30/16 20:00 96.8 74 18 138/68 97 Trach Collar 6.0 04/30/16 19:30 28 04/30/16 19:30 97 T-piece 6.0 28 04/30/16 19:30 T-piece 6.0 28 04/30/16 16:44 98.1 77 16 140/69 95 Room Air 04/30/16 11:56 98.0 67 16 114/63 100 Intake and Output 04/30/16 05/01/16 19:00 07:00 Intake Total 550 ml 330 ml Balance 550 ml 330 ml Intake Oral 250 ml IV Total 300 ml 330 ml # Voids 3 3 Microbiology Date/Time Source Procedure Growth Status 04/28/16 14:27 Blood Blood Culture - Final Staphylococcus Sp Coag Neg Complete 04/28/16 14:15 Nasal Nares Influenza Types A,B Antigen (RANDALL) - Final Complete 04/28/16 15:34 Urine,Clean Catch Urine Culture - Preliminary NO GROWTH AFTER 24 HOURS Resulted Current Medications Medications (Trade) Dose Ordered Sig/Kerry Route PRN Reason Start Time Stop Time Status Last Admin Dose Admin Acetaminophen (Tylenol) 650 mg Q4H PRN ORAL Mild Pain/Temp > 100.5 04/28/16 21:00 05/28/16 20:59 Al Hydroxide/Mg Hydroxide (Mylanta) 30 ml Q6H PRN ORAL Abdominal cramps 04/28/16 21:30 05/28/16 21:29 Albuterol Sulfate (Proventil) 2.5 mg Q4H PRN HHN Shortness of Breath 04/28/16 21:00 05/03/16 20:59 Albuterol/ Ipratropium (DuoNeb 0.5-3(2.5)mg/3ml) 3 ml Q12HRT HHN 04/28/16 22:00 05/03/16 21:59 04/30/16 21:08 Ascorbic Acid (Vitamin C) 500 mg DAILY ORAL 04/29/16 09:00 05/29/16 08:59 04/30/16 09:35 Atorvastatin Calcium (Lipitor) 40 mg BEDTIME ORAL 04/29/16 21:00 05/29/16 20:59 04/30/16 20:48 Azithromycin/ Dextrose (Zithromax/D5W 250ml) 275 ml @ 275 mls/hr Q24H IV 04/28/16 23:00 05/04/16 23:59 04/30/16 22:43 Ceftriaxone Sodium 1 gm/ Dextrose 55 ml @ 110 mls/hr Q24H IVPB 04/28/16 22:00 05/05/16 21:59 04/30/16 21:26 Dextrose (Dextrose 50%) STAT PRN IV Hypoglycemia 04/28/16 21:00 05/28/16 20:59 Heparin Sodium (Porcine) (Heparin 5000 units/ml) 5,000 units EVERY 12 HOURS SUBQ 04/28/16 21:00 05/28/16 20:59 Insulin Aspart (NovoLOG) BEFORE MEALS AND HS SUBQ 04/28/16 22:00 05/28/16 21:59 05/01/16 06:31 Insulin Human NPH (NovoLIN N) 14 units BEDTIME SUBQ 04/28/16 23:00 05/28/16 22:59 04/30/16 23:36 Insulin Human NPH (NovoLIN N) 20 units DAILY SUBQ 04/29/16 09:00 05/29/16 08:59 04/30/16 09:36 Losartan Potassium (Cozaar) 50 mg DAILY ORAL 04/29/16 09:00 05/29/16 08:59 Magnesium Hydroxide 30 ml 30 ml HSPRN PRN ORAL Constipation 04/28/16 21:00 05/28/16 20:59 04/30/16 20:48 Magnesium Oxide (Mag-Ox 400mg) 400 mg Q12HR ORAL 04/29/16 09:00 05/29/16 08:59 04/30/16 20:48 Mirtazapine (Remeron) 15 mg DAILY ORAL 04/29/16 09:00 05/29/16 08:59 04/30/16 09:35 Multivitamins (Multivitamins) 1 tab DAILY ORAL 04/29/16 09:00 05/29/16 08:59 04/30/16 09:35 Pantoprazole (Protonix) 40 mg DAILY ORAL 04/29/16 09:00 05/29/16 08:59 04/30/16 09:34 Risperidone (RisperDAL) 0.5 mg DAILY PRN ORAL Agitation 04/28/16 21:00 05/28/16 20:59 04/30/16 21:25 Zolpidem Tartrate (Ambien) 5 mg HSPRN PRN ORAL Insomnia 04/28/16 21:00 05/28/16 20:59 Height (Feet): 5 Height (Inches): 0.00 Weight (Pounds): 130 Objective SINAN Hein May 01, 2016 09:03
[2016-05-01] MEDS: DuoNeb 0.5-3(2.5)mg/3ml neb HHN SCH ×2 (09:57→19:15)
[2016-05-01] MEDS: Magnesium Oxide 400mg tab ORAL SCH ×2 (10:06→21:03)
[2016-05-01] MEDS: Ascorbic Acid 500mg tab ORAL SCH (10:06)
[2016-05-01] MEDS: Insulin NPH SUBQ SCH ×2 (10:07→21:24)
--- NOTE | 2016-05-01 11:07 | Infectious Diseases Prog Note ---
Assessment/Plan Assessment/Plan antibiotics : ceftriaxone, azithromycin A 1. UTI 2. pneumonia 3. leucocytosis resolved 4. DM 5. HTN 6. + blood cultures with coag neg staph likely contaminated P 1. continue ceftriaxone, azithromycin 2, will follow up cultures Subjective ROS Limited/Unobtainable: Yes Allergies: Coded Allergies: LISINOPRIL (Unverified Allergy, Unknown, 12/11/14) VANCOMYCIN (Verified Allergy, Unknown, 01/17/15) Objective Vital Signs Last 24 Hour Vital Signs Date Time Temp Pulse Resp B/P Pulse Ox O2 Delivery O2 Flow Rate FiO2 05/01/16 08:29 98.6 65 20 111/48 100 Trach Collar 05/01/16 04:00 97.0 71 20 104/51 96 Trach Collar 05/01/16 01:20 96 T-piece 6.0 28 05/01/16 01:20 T-piece 6.0 28 05/01/16 00:00 97.3 72 20 118/49 95 Trach Collar 04/30/16 21:10 92 20 99 T-piece 6.0 28 04/30/16 21:00 90 20 97 T-piece 6.0 28 04/30/16 20:00 96.8 74 18 138/68 97 Trach Collar 6.0 04/30/16 19:30 28 04/30/16 19:30 97 T-piece 6.0 28 04/30/16 19:30 T-piece 6.0 28 04/30/16 16:44 98.1 77 16 140/69 95 Room Air 04/30/16 11:56 98.0 67 16 114/63 100 Height (Feet): 5 Height (Inches): 0.00 Weight (Pounds): 130 HEENT: status post trach Respiratory/Chest: lungs clear Cardiovascular: normal rate, regular rhythm, no gallop/murmur Abdomen: soft, non tender Extremities: no edema Microbiology Date/Time Source Procedure Growth Status 04/28/16 14:27 Blood Blood Culture - Final Staphylococcus Sp Coag Neg Complete 04/28/16 14:12 Blood Blood Culture - Preliminary NO GROWTH AFTER 48 HOURS Resulted 04/29/16 22:15 Sputum Gram Stain Pending Resulted 04/29/16 22:15 Sputum Sputum Culture - Preliminary NORMAL KIRT PRESENT Resulted 04/28/16 14:15 Nasal Nares Influenza Types A,B Antigen (RANDALL) - Final Complete 04/28/16 15:34 Urine,Clean Catch Urine Culture - Preliminary Resulted ELDER FLOWER May 01, 2016 11:07
[2016-05-01 12:28] VITALS: BP 107/56
--- NOTE | 2016-05-01 14:49 | Diagnostic Imaging Report ---
Indications: Hematuria, diabetes, hypertension Technique: Transabdominal real-time grayscale and duplex Doppler imaging of the kidneys, retroperitoneum, and urinary bladder was performed Findings: Comparison: None Right kidney measures 11.3 cm in length. Normal contour, echotexture, cortical thickness. Mild distention of extrarenal pelvis. No intrarenal collecting system dilation. No stones, other focal lesions, or obvious perinephric abnormalities. Left kidney measures 10.7 cm in length. Normal contour, echotexture, cortical thickness. Contains one or more echogenic shadowing foci up to 25 mm diameter. Contains 11 mm circumscribed anechoic focus in the interpolar cortex. Collecting system slightly distended. No stones, other focal lesions, or obvious perinephric abnormalities. The intrahepatic portion of inferior vena cava is patent and normal caliber. The urinary bladder is distended with suggestion of mural thickening.. Impression: Sonographically unremarkable right kidney Left renal cortical cyst, multiple stones, slight collecting system distention without overt hydronephrosis. If clinically indicated, CT urography may be of benefit in further evaluation Apparent mural thickening of urinary bladder--underdistention versus hypertrophy versus cystitis
[2016-05-01 16:00] VITALS: BP 128/58
[2016-05-01 19:00] VITALS: BP 131/60
[2016-05-01 21:08] LABS: L.PNEUMOPHILIA SERO-1 <0.91 OD ratio (0.00-0.90); MYCOPLASMA PNEUMONIAE AB IGG <100 U/mL (0-99); MYCOPLASMA PNEUMONIAE AB IGM <770 U/mL (0-769)
[2016-05-01] MEDS: cefTRIAXone 1 GM in D5W 55 ML IVPB SCH (21:32)
[2016-05-01] MEDS: Azithromycin 500 MG in D5W 275 ML IV SCH (22:54)
[2016-05-02] VITALS: BP 131/54
[2016-05-02 04:00] VITALS: BP 116/57
[2016-05-02] MEDS: NovoLOG Insulin Flexpen SUBQ SCH ×4 (05:55→21:00)
[2016-05-02] MEDS: DuoNeb 0.5-3(2.5)mg/3ml neb HHN SCH ×2 (07:23→19:56)
[2016-05-02 08:00] VITALS: BP 127/58
[2016-05-02] MEDS: Heparin 5000 units/ml inj SUBQ SCH ×2 (09:00→20:42)
--- NOTE | 2016-05-02 09:00 | General Progress Note ---
Assessment/Plan Assessment/Plan IMPRESSION: 1. Urinary tract infection possible urosepsis. 2. Evidence of tracheostomy. 3. Evidence of pneumonia. 4. Evidence of positive blood culture. ?contaminant 5. Possible sepsis with associated leukocytosis. 6. Hyperglycemia. 7. Evidence of hematuria PLAN ID noted. cultures noted IV antibiotics noted urology noted follow up chest XR suction care noted and will monitor continue same trach care follow up for change and recommend further stabilize and DC home hopefully soon impression, plan, and exam edited and reviewed in detail care discussed with RN Subjective ROS Limited/Unobtainable: Yes Allergies: Coded Allergies: LISINOPRIL (Unverified Allergy, Unknown, 12/11/14) VANCOMYCIN (Verified Allergy, Unknown, 01/17/15) Subjective still with some congestion Objective Last 24 Hour Vital Signs Date Time Temp Pulse Resp B/P Pulse Ox O2 Delivery O2 Flow Rate FiO2 05/02/16 08:00 97.5 72 19 127/58 97 Trach Collar 05/02/16 07:42 Trach Collar 6.0 28 05/02/16 07:41 74 20 99 Trach Collar 6.0 28 05/02/16 07:30 69 22 97 Trach Collar 6.0 28 05/02/16 07:30 28 05/02/16 07:29 97 Trach Collar 6.0 28 05/02/16 04:00 97.7 71 18 116/57 99 Trach Collar 05/02/16 00:39 Trach Collar 6.0 28 05/02/16 00:39 96 Trach Collar 6.0 28 05/02/16 00:00 97.5 71 18 131/54 99 Trach Collar 05/01/16 19:15 83 22 96 Trach Collar 6.0 28 05/01/16 19:15 96 Trach Collar 6.0 28 05/01/16 19:15 83 20 99 Trach Collar 6.0 28 05/01/16 19:15 Trach Collar 6.0 28 05/01/16 19:15 28 05/01/16 19:00 97.2 65 20 131/60 98 Trach Collar 6.0 05/01/16 16:07 Trach Collar 6.0 28 05/01/16 16:06 100 Trach Collar 6.0 28 05/01/16 16:00 96.8 69 20 128/58 98 Trach Collar 6.0 05/01/16 12:28 97.3 67 20 107/56 100 Trach Collar 05/01/16 10:13 76 20 100 Trach Collar 6.0 28 05/01/16 09:57 Trach Collar 6.0 28 05/01/16 09:57 100 Trach Collar 6.0 28 05/01/16 09:57 28 05/01/16 09:57 70 22 100 Trach Collar 6.0 28 05/01/16 09:00 107/56 Intake and Output 05/01/16 05/02/16 19:00 07:00 Intake Total 480 ml 295 ml Balance 480 ml 295 ml Intake Oral 480 ml 240 ml IV Total 55 ml # Voids 3 7 # Bowel Movements 3 1 Height (Feet): 5 Height (Inches): 0.00 Weight (Pounds): 130 Objective PHYSICAL EXAMINATION: GENERAL: The patient is a well-developed female, comfortable HEENT: Fairly negative. NECK: Supple. Extraocular grossly intact. Tracheostomy, which is midline. Carotids are 2+. LUNGS: adequate breath sounds. Moderate air entry. no wheeze; some rhonchi CARDIAC: S1 and S2. Regular rate and rhythm without murmurs, rubs, or gallops. ABDOMEN: Overall soft, nontender, and nondistended. no HSM EXTREMITIES: No cyanosis or clubbing. No significant edema. NEUROLOGIC: The patient appears to be nonfocal but weak TAMIE WANG May 02, 2016 09:00
--- NOTE | 2016-05-02 10:04 | Urology Progress Note ---
Assessment/Plan Assessment/Plan 1. Hematuria. 2. Urinary incontinence. 3. Probable neurogenic bladder. 4. Pyuria. 5. Proteinuria. 6. Renal cyst. 7. Nephrolithiasis. abx as ordered f/u on urine cx cysto later consider abd CT Subjective Allergies: Coded Allergies: LISINOPRIL (Unverified Allergy, Unknown, 12/11/14) VANCOMYCIN (Verified Allergy, Unknown, 01/17/15) Subjective no new changes Objective Last 24 Hour Vital Signs Date Time Temp Pulse Resp B/P Pulse Ox O2 Delivery O2 Flow Rate FiO2 05/02/16 08:00 97.5 72 19 127/58 97 Trach Collar 05/02/16 07:42 Trach Collar 6.0 28 05/02/16 07:41 74 20 99 Trach Collar 6.0 28 05/02/16 07:30 69 22 97 Trach Collar 6.0 28 05/02/16 07:30 28 05/02/16 07:29 97 Trach Collar 6.0 28 05/02/16 04:00 97.7 71 18 116/57 99 Trach Collar 05/02/16 00:39 Trach Collar 6.0 28 05/02/16 00:39 96 Trach Collar 6.0 28 05/02/16 00:00 97.5 71 18 131/54 99 Trach Collar 05/01/16 19:15 83 22 96 Trach Collar 6.0 28 05/01/16 19:15 96 Trach Collar 6.0 28 05/01/16 19:15 83 20 99 Trach Collar 6.0 28 05/01/16 19:15 Trach Collar 6.0 28 05/01/16 19:15 28 05/01/16 19:00 97.2 65 20 131/60 98 Trach Collar 6.0 05/01/16 16:07 Trach Collar 6.0 28 05/01/16 16:06 100 Trach Collar 6.0 28 05/01/16 16:00 96.8 69 20 128/58 98 Trach Collar 6.0 05/01/16 12:28 97.3 67 20 107/56 100 Trach Collar 05/01/16 10:13 76 20 100 Trach Collar 6.0 28 Intake and Output 05/01/16 05/02/16 19:00 07:00 Intake Total 480 ml 295 ml Balance 480 ml 295 ml Intake Oral 480 ml 240 ml IV Total 55 ml # Voids 3 7 # Bowel Movements 3 1 Microbiology Date/Time Source Procedure Growth Status 04/28/16 14:27 Blood Blood Culture - Final Staphylococcus Sp Coag Neg Complete 04/29/16 22:15 Sputum Gram Stain - Final Resulted 04/29/16 22:15 Sputum Culture - Preliminary Staphylococcus Aureus Resulted 04/28/16 15:34 Urine,Clean Catch Urine Culture - Preliminary Resulted Current Medications Medications (Trade) Dose Ordered Sig/Kerry Route PRN Reason Start Time Stop Time Status Last Admin Dose Admin Acetaminophen (Tylenol) 650 mg Q4H PRN ORAL Mild Pain/Temp > 100.5 04/28/16 21:00 05/28/16 20:59 Al Hydroxide/Mg Hydroxide (Mylanta) 30 ml Q6H PRN ORAL Abdominal cramps 04/28/16 21:30 05/28/16 21:29 Albuterol Sulfate (Proventil) 2.5 mg Q4H PRN HHN Shortness of Breath 04/28/16 21:00 05/03/16 20:59 Albuterol/ Ipratropium (DuoNeb 0.5-3(2.5)mg/3ml) 3 ml Q12HRT HHN 04/28/16 22:00 05/03/16 21:59 05/02/16 07:23 Ascorbic Acid (Vitamin C) 500 mg DAILY ORAL 04/29/16 09:00 05/29/16 08:59 05/01/16 10:06 Atorvastatin Calcium (Lipitor) 40 mg BEDTIME ORAL 04/29/16 21:00 05/29/16 20:59 05/01/16 21:03 Azithromycin/ Dextrose (Zithromax/D5W 250ml) 275 ml @ 275 mls/hr Q24H IV 04/28/16 23:00 05/04/16 23:59 05/01/16 22:54 Ceftriaxone Sodium 1 gm/ Dextrose 55 ml @ 110 mls/hr Q24H IVPB 04/28/16 22:00 05/05/16 21:59 05/01/16 21:32 Dextrose (Dextrose 50%) STAT PRN IV Hypoglycemia 04/28/16 21:00 05/28/16 20:59 Heparin Sodium (Porcine) (Heparin 5000 units/ml) 5,000 units EVERY 12 HOURS SUBQ 04/28/16 21:00 05/28/16 20:59 Insulin Aspart (NovoLOG) BEFORE MEALS AND HS SUBQ 04/28/16 22:00 05/28/16 21:59 05/01/16 21:04 Insulin Human NPH (NovoLIN N) 14 units BEDTIME SUBQ 04/28/16 23:00 05/28/16 22:59 05/01/16 21:24 Insulin Human NPH (NovoLIN N) 20 units DAILY SUBQ 04/29/16 09:00 05/29/16 08:59 05/01/16 10:07 Losartan Potassium (Cozaar) 50 mg DAILY ORAL 04/29/16 09:00 05/29/16 08:59 Magnesium Hydroxide 30 ml 30 ml HSPRN PRN ORAL Constipation 04/28/16 21:00 05/28/16 20:59 04/30/16 20:48 Magnesium Oxide (Mag-Ox 400mg) 400 mg Q12HR ORAL 04/29/16 09:00 05/29/16 08:59 05/01/16 21:03 Mirtazapine (Remeron) 15 mg DAILY ORAL 04/29/16 09:00 05/29/16 08:59 05/01/16 10:06 Multivitamins (Multivitamins) 1 tab DAILY ORAL 04/29/16 09:00 05/29/16 08:59 05/01/16 10:06 Pantoprazole (Protonix) 40 mg DAILY ORAL 04/29/16 09:00 05/29/16 08:59 05/01/16 10:04 Risperidone (RisperDAL) 0.5 mg DAILY PRN ORAL Agitation 04/28/16 21:00 05/28/16 20:59 04/30/16 21:25 Zolpidem Tartrate (Ambien) 5 mg HSPRN PRN ORAL Insomnia 04/28/16 21:00 05/28/16 20:59 Height (Feet): 5 Height (Inches): 0.00 Weight (Pounds): 130 Objective stable renal ultrasound noted SINAN VAZQUEZ May 02, 2016 10:04
[2016-05-02] MEDS: Magnesium Oxide 400mg tab ORAL SCH ×2 (11:02→20:59)
[2016-05-02] MEDS: Ascorbic Acid 500mg tab ORAL SCH (11:02)
[2016-05-02] MEDS: Losartan 50mg tab ORAL SCH (11:02)
[2016-05-02] MEDS: Insulin NPH SUBQ SCH ×2 (11:04→21:01)
--- NOTE | 2016-05-02 11:10 | Infectious Diseases Prog Note ---
Assessment/Plan Assessment/Plan antibiotics : ceftriaxone, azithromycin A 1. UTI 2. staph aureus pneumonia 3. leucocytosis resolved 4. DM 5. HTN 6. + blood cultures with coag neg staph likely contaminated P 1. continue ceftriaxone 2. d/c azithromycin 3. start linezolid 4. will follow up cultures Subjective ROS Limited/Unobtainable: Yes Allergies: Coded Allergies: LISINOPRIL (Unverified Allergy, Unknown, 12/11/14) VANCOMYCIN (Verified Allergy, Unknown, 01/17/15) Objective Vital Signs Last 24 Hour Vital Signs Date Time Temp Pulse Resp B/P Pulse Ox O2 Delivery O2 Flow Rate FiO2 05/02/16 11:02 127/58 05/02/16 08:00 97.5 72 19 127/58 97 Trach Collar 05/02/16 07:42 Trach Collar 6.0 28 05/02/16 07:41 74 20 99 Trach Collar 6.0 28 05/02/16 07:30 69 22 97 Trach Collar 6.0 28 05/02/16 07:30 28 05/02/16 07:29 97 Trach Collar 6.0 28 05/02/16 04:00 97.7 71 18 116/57 99 Trach Collar 05/02/16 00:39 Trach Collar 6.0 28 05/02/16 00:39 96 Trach Collar 6.0 28 05/02/16 00:00 97.5 71 18 131/54 99 Trach Collar 05/01/16 19:15 83 22 96 Trach Collar 6.0 28 05/01/16 19:15 96 Trach Collar 6.0 28 05/01/16 19:15 83 20 99 Trach Collar 6.0 28 05/01/16 19:15 Trach Collar 6.0 28 05/01/16 19:15 28 05/01/16 19:00 97.2 65 20 131/60 98 Trach Collar 6.0 05/01/16 16:07 Trach Collar 6.0 28 05/01/16 16:06 100 Trach Collar 6.0 28 05/01/16 16:00 96.8 69 20 128/58 98 Trach Collar 6.0 05/01/16 12:28 97.3 67 20 107/56 100 Trach Collar Height (Feet): 5 Height (Inches): 0.00 Weight (Pounds): 130 HEENT: status post trach Respiratory/Chest: lungs clear Cardiovascular: normal rate, regular rhythm, no gallop/murmur Abdomen: soft, non tender Extremities: no edema Microbiology Date/Time Source Procedure Growth Status 04/29/16 22:15 Sputum Gram Stain - Final Resulted 04/29/16 22:15 Sputum Culture - Preliminary Staphylococcus Aureus Resulted ELDER FLOWER May 02, 2016 11:10
[2016-05-02 12:00] VITALS: BP 113/75
[2016-05-02] MEDS ORDERED: Hydrogen Peroxide 120ml Bottle TOPIC ONE (13:15)
--- NOTE | 2016-05-02 13:44 | Diagnostic Imaging Report ---
Indication: Dyspnea Comparison: 04/28/16 A single view chest radiograph was obtained. Findings: Tracheostomy and right [employer]CH[employer]PRESENT[employer]IVE shunt are present. No definite infiltrate or pulmonary vascular congestion identified. The heart is enlarged. The aorta is mildly enlarged consistent with atherosclerotic vascular disease. The bones are osteopenic. Impression: No acute disease
[2016-05-02 16:00] VITALS: BP 121/68
[2016-05-02] MEDS: Hydrogen Peroxide 120ml Bottle TOPIC SCH (17:56)
[2016-05-02 19:00] VITALS: BP 114/58
[2016-05-02] MEDS: cefTRIAXone 1 GM in D5W 55 ML IVPB SCH (21:43)
[2016-05-03 00:35] VITALS: BP 140/90
[2016-05-03 04:00] VITALS: BP 123/57
[2016-05-03] MEDS: NovoLOG Insulin Flexpen SUBQ SCH ×4 (05:47→21:47)
[2016-05-03] MEDS: DuoNeb 0.5-3(2.5)mg/3ml neb HHN SCH ×2 (07:55→19:09)
[2016-05-03 08:00] VITALS: BP 120/59
[2016-05-03] MEDS: Heparin 5000 units/ml inj SUBQ SCH ×2 (09:00→21:00)
[2016-05-03] MEDS: Losartan 50mg tab ORAL SCH (09:22)
[2016-05-03] MEDS: Ascorbic Acid 500mg tab ORAL SCH (09:23)
[2016-05-03] MEDS: Magnesium Oxide 400mg tab ORAL SCH ×2 (09:23→21:45)
[2016-05-03] MEDS: Hydrogen Peroxide 120ml Bottle TOPIC SCH (09:23)
[2016-05-03] MEDS: Insulin NPH SUBQ SCH ×2 (09:24→21:47)
--- NOTE | 2016-05-03 11:16 | General Progress Note ---
Assessment/Plan Assessment/Plan IMPRESSION: 1. Urinary tract infection possible urosepsis. 2. Evidence of tracheostomy. 3. Evidence of pneumonia. 4. Evidence of positive blood culture. ?contaminant 5. Possible sepsis with associated leukocytosis. 6. Hyperglycemia. 7. Evidence of hematuria PLAN exam reviewed ID noted. cultures noted..? po antibiotics follow up chest XR negative suction as needed care noted and will monitor continue same trach care follow up for change and recommend further stabilize and DC home when cleared by ID impression, plan, and exam edited and reviewed in detail care discussed with RN Subjective Allergies: Coded Allergies: LISINOPRIL (Unverified Allergy, Unknown, 12/11/14) VANCOMYCIN (Verified Allergy, Unknown, 01/17/15) Subjective still with some congestion ID noted cxr negative Objective Last 24 Hour Vital Signs Date Time Temp Pulse Resp B/P Pulse Ox O2 Delivery O2 Flow Rate FiO2 05/03/16 09:22 120/59 05/03/16 08:00 97.5 62 21 120/59 99 05/03/16 07:48 Trach Collar 6.0 28 05/03/16 07:45 74 18 100 Trach Collar 6.0 28 05/03/16 07:35 28 05/03/16 07:35 68 18 97 Trach Collar 6.0 28 05/03/16 07:33 98 T-piece 6.0 28 05/03/16 04:00 97.7 69 18 123/57 97 Trach Collar 05/03/16 01:26 T-piece 6.0 28 05/03/16 01:26 97 T-piece 6.0 28 05/03/16 00:35 97.0 74 20 140/90 96 Trach Collar 05/02/16 19:55 69 18 97 Trach Collar 6.0 28 05/02/16 19:55 Trach Collar 6.0 28 05/02/16 19:55 97 Trach Collar 6.0 28 05/02/16 19:54 28 05/02/16 19:54 70 18 97 Trach Collar 6.0 28 05/02/16 19:00 98.2 99 20 114/58 97 Trach Collar 6.0 05/02/16 16:00 97.5 72 20 121/68 96 Trach Collar 6.0 05/02/16 13:00 97 Trach Collar 6.0 28 05/02/16 13:00 Trach Collar 6.0 28 05/02/16 12:00 65 19 113/75 100 Trach Collar Intake and Output 05/02/16 05/03/16 19:00 07:00 Intake Total 800 ml 240 ml Balance 800 ml 240 ml Intake Oral 800 ml 240 ml # Voids 4 5 # Bowel Movements 1 Height (Feet): 5 Height (Inches): 0.00 Weight (Pounds): 130 Objective PHYSICAL EXAMINATION: GENERAL: The patient is a well-developed female, comfortable HEENT: Fairly negative. NECK: Supple. Extraocular grossly intact. Tracheostomy, which is midline. Carotids are 2+. LUNGS: adequate breath sounds. Moderate air entry. no wheeze; clearer CARDIAC: S1 and S2. Regular rate and rhythm without murmurs, rubs, or gallops. ABDOMEN: Overall soft, nontender, and nondistended. no HSM EXTREMITIES: No cyanosis or clubbing. No significant edema. NEUROLOGIC: The patient appears to be nonfocal but weak TAMIE WANG May 03, 2016 11:16
[2016-05-03 11:53] VITALS: BP 120/76
--- NOTE | 2016-05-03 11:58 | Urology Progress Note ---
Assessment/Plan Assessment/Plan 1. Hematuria. 2. Urinary incontinence. 3. Probable neurogenic bladder. 4. Pyuria. 5. Proteinuria. 6. Renal cyst. 7. Nephrolithiasis. abx as ordered f/u on urine cx consider diflucan, per ID cysto later consider abd CT Subjective Allergies: Coded Allergies: LISINOPRIL (Unverified Allergy, Unknown, 12/11/14) VANCOMYCIN (Verified Allergy, Unknown, 01/17/15) Subjective no new changes Objective Last 24 Hour Vital Signs Date Time Temp Pulse Resp B/P Pulse Ox O2 Delivery O2 Flow Rate FiO2 05/03/16 09:22 120/59 05/03/16 08:00 97.5 62 21 120/59 99 05/03/16 07:48 Trach Collar 6.0 28 05/03/16 07:45 74 18 100 Trach Collar 6.0 28 05/03/16 07:35 28 05/03/16 07:35 68 18 97 Trach Collar 6.0 28 05/03/16 07:33 98 T-piece 6.0 28 05/03/16 04:00 97.7 69 18 123/57 97 Trach Collar 05/03/16 01:26 T-piece 6.0 28 05/03/16 01:26 97 T-piece 6.0 28 05/03/16 00:35 97.0 74 20 140/90 96 Trach Collar 05/02/16 19:55 69 18 97 Trach Collar 6.0 28 05/02/16 19:55 Trach Collar 6.0 28 05/02/16 19:55 97 Trach Collar 6.0 28 05/02/16 19:54 28 05/02/16 19:54 70 18 97 Trach Collar 6.0 28 05/02/16 19:00 98.2 99 20 114/58 97 Trach Collar 6.0 05/02/16 16:00 97.5 72 20 121/68 96 Trach Collar 6.0 05/02/16 13:00 97 Trach Collar 6.0 28 05/02/16 13:00 Trach Collar 6.0 28 05/02/16 12:00 65 19 113/75 100 Trach Collar 05/02/16 11:02 127/58 Intake and Output 05/02/16 05/03/16 18:59 06:59 Intake Total 800 ml 240 ml Balance 800 ml 240 ml Intake Oral 800 ml 240 ml # Voids 4 5 # Bowel Movements 1 Microbiology Date/Time Source Procedure Growth Status 04/28/16 14:27 Blood Blood Culture - Final Staphylococcus Sp Coag Neg Complete 04/29/16 22:15 Sputum Gram Stain - Final Complete 04/29/16 22:15 Sputum Culture - Final Staphylococcus Aureus - Mrsa Usual Upper Respiratory Carey Complete 04/28/16 15:34 Urine,Clean Catch Urine Culture - Preliminary YEAST Resulted Current Medications Medications (Trade) Dose Ordered Sig/Kerry Route PRN Reason Start Time Stop Time Status Last Admin Dose Admin Acetaminophen (Tylenol) 650 mg Q4H PRN ORAL Mild Pain/Temp > 100.5 04/28/16 21:00 05/28/16 20:59 Al Hydroxide/Mg Hydroxide (Mylanta) 30 ml Q6H PRN ORAL Abdominal cramps 04/28/16 21:30 05/28/16 21:29 Albuterol Sulfate (Proventil) 2.5 mg Q4H PRN HHN Shortness of Breath 04/28/16 21:00 05/03/16 20:59 Albuterol/ Ipratropium (DuoNeb 0.5-3(2.5)mg/3ml) 3 ml Q12HRT HHN 04/28/16 22:00 05/03/16 21:59 05/03/16 07:55 Ascorbic Acid (Vitamin C) 500 mg DAILY ORAL 04/29/16 09:00 05/29/16 08:59 05/03/16 09:23 Atorvastatin Calcium (Lipitor) 40 mg BEDTIME ORAL 04/29/16 21:00 05/29/16 20:59 05/02/16 21:00 Ceftriaxone Sodium/Dextrose (Rocephin/D5W) 55 ml @ 110 mls/hr Q24H IVPB 04/28/16 22:00 05/05/16 21:59 05/02/16 21:43 Dextrose (Dextrose 50%) STAT PRN IV Hypoglycemia 04/28/16 21:00 05/28/16 20:59 Heparin Sodium (Porcine) (Heparin 5000 units/ml) 5,000 units EVERY 12 HOURS SUBQ 04/28/16 21:00 05/28/16 20:59 Hydrogen Peroxide (Hydrogen Peroxide) 1 applic DAILY TOPIC 05/02/16 18:00 06/01/16 17:59 05/03/16 09:23 Insulin Aspart (NovoLOG) BEFORE MEALS AND HS SUBQ 04/28/16 22:00 05/28/16 21:59 05/02/16 21:00 Insulin Human NPH (NovoLIN N) 14 units BEDTIME SUBQ 04/28/16 23:00 05/28/16 22:59 05/02/16 21:01 Insulin Human NPH (NovoLIN N) 20 units DAILY SUBQ 04/29/16 09:00 05/29/16 08:59 05/03/16 09:24 Linezolid (Zyvox) 600 mg Q12HR@0000,1200 ORAL 05/02/16 12:00 05/07/16 11:59 05/03/16 00:09 Losartan Potassium (Cozaar) 50 mg DAILY ORAL 04/29/16 09:00 05/29/16 08:59 05/03/16 09:22 Magnesium Hydroxide 30 ml 30 ml HSPRN PRN ORAL Constipation 04/28/16 21:00 05/28/16 20:59 04/30/16 20:48 Magnesium Oxide (Mag-Ox 400mg) 400 mg Q12HR ORAL 04/29/16 09:00 05/29/16 08:59 05/03/16 09:23 Multivitamins (Multivitamins) 1 tab DAILY ORAL 04/29/16 09:00 05/29/16 08:59 05/03/16 09:23 Pantoprazole (Protonix) 40 mg DAILY ORAL 04/29/16 09:00 05/29/16 08:59 05/03/16 09:23 Risperidone (RisperDAL) 0.5 mg DAILY PRN ORAL Agitation 04/28/16 21:00 05/28/16 20:59 05/02/16 17:56 Zolpidem Tartrate (Ambien) 5 mg HSPRN PRN ORAL Insomnia 04/28/16 21:00 05/28/16 20:59 Height (Feet): 5 Height (Inches): 0.00 Weight (Pounds): 130 Objective stable renal ultrasound noted SINAN VAZQUEZ May 03, 2016 11:57
--- NOTE | 2016-05-03 15:36 | Infectious Diseases Prog Note ---
Assessment/Plan Assessment/Plan A: Pneumonia DM HPN s/p CVA Tracheostomy status Positive blood culture, contamination Acidosis P: continue Linezolid Subjective ROS Limited/Unobtainable: Yes Respiratory: Reports: productive cough Gastrointestinal/Abdominal: Reports: no symptoms Genitourinary: Reports: no symptoms Allergies: Coded Allergies: LISINOPRIL (Unverified Allergy, Unknown, 12/11/14) VANCOMYCIN (Verified Allergy, Unknown, 01/17/15) Objective Vital Signs Last 24 Hour Vital Signs Date Time Temp Pulse Resp B/P Pulse Ox O2 Delivery O2 Flow Rate FiO2 05/03/16 11:53 97.7 88 20 120/76 94 Room Air 05/03/16 09:22 120/59 05/03/16 08:00 97.5 62 21 120/59 99 05/03/16 07:48 Trach Collar 6.0 28 05/03/16 07:45 74 18 100 Trach Collar 6.0 28 05/03/16 07:35 28 05/03/16 07:35 68 18 97 Trach Collar 6.0 28 05/03/16 07:33 98 T-piece 6.0 28 05/03/16 04:00 97.7 69 18 123/57 97 Trach Collar 05/03/16 01:26 T-piece 6.0 28 05/03/16 01:26 97 T-piece 6.0 28 05/03/16 00:35 97.0 74 20 140/90 96 Trach Collar 05/02/16 19:55 69 18 97 Trach Collar 6.0 28 05/02/16 19:55 Trach Collar 6.0 28 05/02/16 19:55 97 Trach Collar 6.0 28 05/02/16 19:54 28 05/02/16 19:54 70 18 97 Trach Collar 6.0 28 05/02/16 19:00 98.2 99 20 114/58 97 Trach Collar 6.0 05/02/16 16:00 97.5 72 20 121/68 96 Trach Collar 6.0 Height (Feet): 5 Height (Inches): 0.00 Weight (Pounds): 130 General Appearance: no acute distress HEENT: status post trach Respiratory/Chest: rhonchi - bilaterally Cardiovascular: normal rate Abdomen: soft, non tender Extremities: no edema Neurologic/Psychiatric: alert, responsive, other - left heiplegia Current Medications Medications (Trade) Dose Ordered Sig/Kerry Route PRN Reason Start Time Stop Time Status Last Admin Dose Admin Acetaminophen (Tylenol) 650 mg Q4H PRN ORAL Mild Pain/Temp > 100.5 04/28/16 21:00 05/28/16 20:59 Al Hydroxide/Mg Hydroxide (Mylanta) 30 ml Q6H PRN ORAL Abdominal cramps 04/28/16 21:30 05/28/16 21:29 Albuterol Sulfate (Proventil) 2.5 mg Q4H PRN HHN Shortness of Breath 04/28/16 21:00 05/03/16 20:59 Albuterol/ Ipratropium (DuoNeb 0.5-3(2.5)mg/3ml) 3 ml Q12HRT HHN 04/28/16 22:00 05/03/16 21:59 05/03/16 07:55 Ascorbic Acid (Vitamin C) 500 mg DAILY ORAL 04/29/16 09:00 05/29/16 08:59 05/03/16 09:23 Atorvastatin Calcium (Lipitor) 40 mg BEDTIME ORAL 04/29/16 21:00 05/29/16 20:59 05/02/16 21:00 Ceftriaxone Sodium/Dextrose (Rocephin/D5W) 55 ml @ 110 mls/hr Q24H IVPB 04/28/16 22:00 05/05/16 21:59 05/02/16 21:43 Dextrose (Dextrose 50%) STAT PRN IV Hypoglycemia 04/28/16 21:00 05/28/16 20:59 Heparin Sodium (Porcine) (Heparin 5000 units/ml) 5,000 units EVERY 12 HOURS SUBQ 04/28/16 21:00 05/28/16 20:59 Hydrogen Peroxide (Hydrogen Peroxide) 1 applic DAILY TOPIC 05/02/16 18:00 06/01/16 17:59 05/03/16 09:23 Insulin Aspart (NovoLOG) BEFORE MEALS AND HS SUBQ 04/28/16 22:00 05/28/16 21:59 05/03/16 11:38 Insulin Human NPH (NovoLIN N) 14 units BEDTIME SUBQ 04/28/16 23:00 05/28/16 22:59 05/02/16 21:01 Insulin Human NPH (NovoLIN N) 20 units DAILY SUBQ 04/29/16 09:00 05/29/16 08:59 05/03/16 09:24 Linezolid (Zyvox) 600 mg Q12HR@0000,1200 ORAL 05/02/16 12:00 05/07/16 11:59 05/03/16 12:56 Losartan Potassium (Cozaar) 50 mg DAILY ORAL 04/29/16 09:00 05/29/16 08:59 05/03/16 09:22 Magnesium Hydroxide 30 ml 30 ml HSPRN PRN ORAL Constipation 04/28/16 21:00 05/28/16 20:59 04/30/16 20:48 Magnesium Oxide (Mag-Ox 400mg) 400 mg Q12HR ORAL 04/29/16 09:00 05/29/16 08:59 05/03/16 09:23 Multivitamins (Multivitamins) 1 tab DAILY ORAL 04/29/16 09:00 05/29/16 08:59 05/03/16 09:23 Pantoprazole (Protonix) 40 mg DAILY ORAL 04/29/16 09:00 05/29/16 08:59 05/03/16 09:23 Risperidone (RisperDAL) 0.5 mg DAILY PRN ORAL Agitation 04/28/16 21:00 05/28/16 20:59 05/03/16 11:34 Zolpidem Tartrate (Ambien) 5 mg HSPRN PRN ORAL Insomnia 04/28/16 21:00 05/28/16 20:59 ANTONIO GRACIA May 03, 2016 15:36
[2016-05-03 16:00] VITALS: BP 137/77
[2016-05-03 19:00] VITALS: BP 128/86
[2016-05-03] MEDS: cefTRIAXone 1 GM in D5W 55 ML IVPB SCH (21:45)
[2016-05-04] VITALS: BP 138/61
[2016-05-04 03:55] VITALS: BP 141/65
[2016-05-04] MEDS: NovoLOG Insulin Flexpen SUBQ SCH ×2 (06:30→11:12)
[2016-05-04 08:00] VITALS: BP 128/59
[2016-05-04 08:11] LABS: L.PNEUMOPHILIA IGM SERO-1 < 1:16 (< 1:16)
[2016-05-04] MEDS: Heparin 5000 units/ml inj SUBQ SCH (09:00)
--- NOTE | 2016-05-04 09:22 | Urology Progress Note ---
Assessment/Plan Assessment/Plan 1. Hematuria. 2. Urinary incontinence. 3. Probable neurogenic bladder. 4. Pyuria. 5. Proteinuria. 6. Renal cyst. 7. Nephrolithiasis. abx as ordered consider diflucan, per ID cysto later consider abd CT d/w pt's family extensively Subjective Allergies: Coded Allergies: LISINOPRIL (Unverified Allergy, Unknown, 12/11/14) VANCOMYCIN (Verified Allergy, Unknown, 01/17/15) Subjective no new changes Objective Last 24 Hour Vital Signs Date Time Temp Pulse Resp B/P Pulse Ox O2 Delivery O2 Flow Rate FiO2 05/04/16 08:00 97.3 77 18 128/59 98 Room Air 05/04/16 07:36 Trach Collar 6.0 28 05/04/16 07:35 97 Trach Collar 6.0 25 05/04/16 03:55 97.7 73 19 141/65 94 Trach Collar 05/04/16 00:00 97.3 68 20 138/61 100 Trach Collar 05/03/16 19:37 77 16 100 Trach Collar 6.0 28 05/03/16 19:19 Trach Collar 6.0 28 05/03/16 19:19 100 Trach Collar 6.0 28 05/03/16 19:18 28 05/03/16 19:17 77 16 100 Trach Collar 6.0 28 05/03/16 19:00 97.3 66 20 128/86 95 Room Air 05/03/16 16:00 97.5 64 20 137/77 95 Room Air 05/03/16 11:53 97.7 88 20 120/76 94 Room Air 05/03/16 09:22 120/59 Intake and Output 05/03/16 05/04/16 19:00 07:00 Intake Total 220 ml 230 ml Balance 220 ml 230 ml Intake Oral 220 ml 120 ml IV Total 110 ml # Voids 5 # Bowel Movements 2 2 Microbiology Date/Time Source Procedure Growth Status 04/28/16 14:27 Blood Blood Culture - Final Staphylococcus Sp Coag Neg Complete 04/29/16 22:15 Sputum Gram Stain - Final Complete 04/29/16 22:15 Sputum Culture - Final Staphylococcus Aureus - Mrsa Usual Upper Respiratory Carey Complete 04/28/16 15:34 Urine,Clean Catch Urine Culture - Final Sherie Glabrata Complete Current Medications Medications (Trade) Dose Ordered Sig/Kerry Route PRN Reason Start Time Stop Time Status Last Admin Dose Admin Acetaminophen (Tylenol) 650 mg Q4H PRN ORAL Mild Pain/Temp > 100.5 04/28/16 21:00 05/28/16 20:59 Al Hydroxide/Mg Hydroxide (Mylanta) 30 ml Q6H PRN ORAL Abdominal cramps 04/28/16 21:30 05/28/16 21:29 Ascorbic Acid (Vitamin C) 500 mg DAILY ORAL 04/29/16 09:00 05/29/16 08:59 05/03/16 09:23 Atorvastatin Calcium (Lipitor) 40 mg BEDTIME ORAL 04/29/16 21:00 05/29/16 20:59 05/03/16 21:46 Ceftriaxone Sodium/Dextrose (Rocephin/D5W) 55 ml @ 110 mls/hr Q24H IVPB 04/28/16 22:00 05/05/16 21:59 05/03/16 21:45 Dextrose (Dextrose 50%) STAT PRN IV Hypoglycemia 04/28/16 21:00 05/28/16 20:59 Heparin Sodium (Porcine) (Heparin 5000 units/ml) 5,000 units EVERY 12 HOURS SUBQ 04/28/16 21:00 05/28/16 20:59 Hydrogen Peroxide (Hydrogen Peroxide) 1 applic DAILY TOPIC 05/02/16 18:00 06/01/16 17:59 05/03/16 09:23 Insulin Aspart (NovoLOG) BEFORE MEALS AND HS SUBQ 04/28/16 22:00 05/28/16 21:59 05/03/16 21:47 Insulin Human NPH (NovoLIN N) 14 units BEDTIME SUBQ 04/28/16 23:00 05/28/16 22:59 05/03/16 21:47 Insulin Human NPH (NovoLIN N) 20 units DAILY SUBQ 04/29/16 09:00 05/29/16 08:59 05/03/16 09:24 Linezolid (Zyvox) 600 mg Q12HR@0000,1200 ORAL 05/02/16 12:00 05/07/16 11:59 05/04/16 00:15 Losartan Potassium (Cozaar) 50 mg DAILY ORAL 04/29/16 09:00 05/29/16 08:59 05/03/16 09:22 Magnesium Hydroxide 30 ml 30 ml HSPRN PRN ORAL Constipation 04/28/16 21:00 05/28/16 20:59 04/30/16 20:48 Magnesium Oxide (Mag-Ox 400mg) 400 mg Q12HR ORAL 04/29/16 09:00 05/29/16 08:59 05/03/16 21:45 Multivitamins (Multivitamins) 1 tab DAILY ORAL 04/29/16 09:00 05/29/16 08:59 05/03/16 09:23 Pantoprazole (Protonix) 40 mg DAILY ORAL 04/29/16 09:00 05/29/16 08:59 05/03/16 09:23 Risperidone (RisperDAL) 0.5 mg DAILY PRN ORAL Agitation 04/28/16 21:00 05/28/16 20:59 05/03/16 11:34 Zolpidem Tartrate (Ambien) 5 mg HSPRN PRN ORAL Insomnia 04/28/16 21:00 05/28/16 20:59 Height (Feet): 5 Height (Inches): 0.00 Weight (Pounds): 130 Objective stable renal ultrasound noted SINAN VAZQUEZ May 04, 2016 09:22
[2016-05-04 09:27] VITALS: BP 128/59
[2016-05-04] MEDS: Losartan 50mg tab ORAL SCH (09:27)
[2016-05-04] MEDS: Ascorbic Acid 500mg tab ORAL SCH (09:28)
[2016-05-04] MEDS: Magnesium Oxide 400mg tab ORAL SCH (09:28)
[2016-05-04] MEDS: Hydrogen Peroxide 120ml Bottle TOPIC SCH (09:28)
[2016-05-04] MEDS ORDERED: BACTRIM-DS1 EA ORAL (10:18)
[2016-05-04] MEDS: Insulin NPH SUBQ SCH (10:56)
[2016-05-04] MEDS ORDERED: NS 275ml ONE (11:54)
[2016-05-04] MEDS ORDERED: Tubing IV Secondary IV ONE (11:54)
[2016-05-04] MEDS ORDERED: NS 550ML IV ONE (11:54)
[2016-05-04] MEDS ORDERED: NS Irrig 1000ml ONE (11:54)
--- NOTE | 2016-05-04 17:13 | General Progress Note ---
Assessment/Plan Assessment/Plan IMPRESSION: 1. Urinary tract infection possible urosepsis. 2. Evidence of tracheostomy. 3. Evidence of pneumonia. 4. Evidence of positive blood culture. ?contaminant 5. Possible sepsis with associated leukocytosis. 6. Hyperglycemia. 7. Evidence of hematuria PLAN comfortable dc home on bactrim made aware of MRSA care noted and will monitor continue same trach care family does not want HH 24 hour caregivers available impression, plan, and exam edited and reviewed in detail care discussed with RN Subjective Allergies: Coded Allergies: LISINOPRIL (Unverified Allergy, Unknown, 12/11/14) VANCOMYCIN (Verified Allergy, Unknown, 01/17/15) Subjective doing well no sob anxious to go home Objective Last 24 Hour Vital Signs Date Time Temp Pulse Resp B/P Pulse Ox O2 Delivery O2 Flow Rate FiO2 05/04/16 09:27 128/59 05/04/16 08:00 97.3 77 18 128/59 98 Room Air 05/04/16 07:36 Trach Collar 6.0 28 05/04/16 07:35 97 Trach Collar 6.0 25 05/04/16 03:55 97.7 73 19 141/65 94 Trach Collar 05/04/16 00:00 97.3 68 20 138/61 100 Trach Collar 05/03/16 19:37 77 16 100 Trach Collar 6.0 28 05/03/16 19:19 Trach Collar 6.0 28 05/03/16 19:19 100 Trach Collar 6.0 28 05/03/16 19:18 28 05/03/16 19:17 77 16 100 Trach Collar 6.0 28 05/03/16 19:00 97.3 66 20 128/86 95 Room Air Intake and Output 05/03/16 05/04/16 19:00 07:00 Intake Total 220 ml 230 ml Balance 220 ml 230 ml Intake Oral 220 ml 120 ml IV Total 110 ml # Voids 5 # Bowel Movements 2 2 Height (Feet): 5 Height (Inches): 0.00 Weight (Pounds): 130 Objective PHYSICAL EXAMINATION: GENERAL: The patient is a well-developed female, comfortable HEENT: Fairly negative. NECK: Supple. Extraocular grossly intact. Tracheostomy, which is midline. Carotids are 2+. LUNGS: adequate breath sounds. Moderate air entry. no wheeze; clearer CARDIAC: S1 and S2. Regular rate and rhythm without murmurs, rubs, or gallops. ABDOMEN: Overall soft, nontender, and nondistended. no HSM EXTREMITIES: No cyanosis or clubbing. No significant edema. NEUROLOGIC: The patient appears to be nonfocal but weak TAMIE WANG May 04, 2016 17:13
--- NOTE | 2016-05-05 18:32 | Discharge Summary ---
Discharge Summary Hospital Course Date of Admission Apr 28, 2016 at 14:25 Date of Discharge May 04, 2016 at 11:55 Admitting Diagnosis fever,pnuemonia HPI Martina Abdalla is a 70 year old female who was admitted on Apr 28, 2016 at 14: 25 for Fever Pneumonia Hospital Course [id number] Discharge Discharge Disposition Patient was discharged to Home (01) Discharge Diagnoses: Vane Cho NP May 05, 2016 18:32
--- NOTE | 2016-05-06 06:27 | Discharge Summary 2 SIG ---
DATE OF ADMISSION: 04/28/2016 DATE OF DISCHARGE: 05/04/2016 CONSULTANTS: 1. Solis Doss M.D. 2. Tara Duenas M.D. BRIEF HOSPITAL COURSE: The patient is a 70-year-old female, who presented to the emergency room. The patient's granddaughter noted productive cough with increased secretions and fever. Denies chest pain or shortness of breath. No nausea. No vomiting. The patient was evaluated in the emergency room and had a chest x-ray consistent with pneumonia. She was given IV antibiotics and was pancultured. Dr. Duenas was consulted. Blood culture was positive for gram-positive cocci. Urinalysis also showed evidence of urinary tract infection. Swabs for influenza A and B were negative. She was given ceftriaxone and azithromycin and was started on linezolid given her vancomycin allergy. Sputum culture showed growth of MRSA. Urine showed growth of Sherie. Blood culture showed growth of coagulase-negative Staph most likely contaminant. She was given linezolid. Dr. Doss was consulted for evaluation of hematuria, which may be secondary to urinary tract infection or irritation of bladder. The patient was monitored clinically and agreed to continue with antibiotic treatment. Renal ultrasound was done showed sonographically unremarkable right kidney with left renal cortical cyst, multiple stones and slight collecting system distention without overt hydronephrosis and mural thickening of urinary bladder. The family did not want home health as there were 24-hour caregivers available. They were made aware of MRSA. Trach care was done. The patient was discharged home on Bactrim. FINAL DIAGNOSES: 1. Urinary tract infection with possible sepsis. 2. Tracheostomy status. 3. Pneumonia. 4. Bacteremia possible contaminant. 5. Possible sepsis with leukocytosis. 6. Hyperglycemia. 7. Hematuria. 8. Diabetes mellitus. 9. Hypertension. 10. Old cerebrovascular accident. 11. Staphylococcus aureus pneumonia. 12. Sacral area stage I pressure ulcer, present on admission. Lenin Roberts M.D. I have been assigned to dictate discharge summary on this account and I was not involved in the patient's management. Vane Cho N.P. DR: ALANA JOB#: [id number] CC: GISELLE
== END 2016-05-04 11:55 | disposition home or self-care (01) | DRG 720 ==
LOC: EMR 14:15 → 4E 14:25 → EDBEDREQ 16:28
DX: A41.9 Sepsis, unspecified organism (principal); J15.212 Pneumonia due to Methicillin resistant Staphylococcus aureus; L89.151 Pressure ulcer of sacral region, stage 1; N39.0 Urinary tract infection, site not specified; E11.65 Type 2 diabetes mellitus with hyperglycemia; Z43.0 Encounter for attention to tracheostomy; Z86.73 Personal history of transient ischemic attack (TIA), and cerebral infarction without residual deficits; I10 Essential (primary) hypertension; N20.0 Calculus of kidney; N31.9 Neuromuscular dysfunction of bladder, unspecified; N39.498 Other specified urinary incontinence; N28.1 Cyst of kidney, acquired
CPT/HCPCS: 36415; 71010; 76775; 80048; 80053; 81003; 82550; 82553; 82962; 83605; 83880; 84484; 85025; 86710; 86713; 86738; 87040; 87070; 87086; 87181; 87205; 93005; 94640; 94664; 94760; J1815; J7620